=== PATIENT | female | born 1955 | race Caucasian/White ===

== ENCOUNTER 2024-04-24 12:51 | Outpatient (AMB) | payer MEDICARE, SELFPAY ==
--- NOTE | 2024-04-24 13:18 | A.OFFPC_ITS ---
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 Intake Note: New patient visit Tube Inspector Required: No Allergies sulfamethoxazole [From Bactrim] Allergy (Severe, Verified 04/24/24 13:22) stomch cramps trimethoprim [From Bactrim] Allergy (Severe, Verified 04/24/24 13:22) stomch cramps Medication List - Last Reconciled 04/24/24 by Jacquelin Ruiz MD calcium carbonate-vitamin D3 500 mg-10 mcg (400 unit) (Calcium 500 With D) 1 tab PO DAILY levothyroxine 88 mcg PO DAILY lisinopril 2.5 mg PO DAILY multivitamin 1 tab PO DAILY phytosterol-pantethine 300-100 mg (CholestOff Complete) caps PO Tobacco use date assessed: 04/24/24 Fall risk assessment: No Falls in past year Last assessed Fall Risk: 04/24/24 Dental Screening Dental Screen Date: 04/24/24 Did you have a dental visit in the last 12 months?: Yes Did you have a dental problem in the last 6 months where you did not have access to dental care?: No Was dental information given to patient?: Patient has dentist HPI HPI Comments History of Present Illness Details The patient is a 69 year old female with a past medical history of anxiety, hypertension, hypothyroid, osteoporosis presenting for follow up CV: On lisinopril 2.5 mg daily. Denies chest pain Numbness, tingling, pain in the lower extremities bilaterally. Feet become very cold, whitish at times. This initially was distal but has progressed up to the shins. No excessive fatigue. In fall 09/2023 normal A1C, TSH at goal, b12 low but has been consistent with her supplement. pending recheck (b12) Osteoporosis-continues vitamin D/calcium combination ROS CONSTITUTIONAL: Denies weight loss, fever and chills. HEENT: Denies changes in vision and hearing. RESPIRATORY: Denies SOB and cough. CV: Denies palpitations and CP GI: Denies abdominal pain, nausea, vomiting and diarrhea. : Denies dysuria and urinary frequency. MSK: Denies new myalgia and joint pain. SKIN: Denies rash and pruritus. NEUROLOGICAL: see HPI PSYCHIATRIC: Denies recent changes in mood. PHYSICAL EXAM: GENERAL: Alert and oriented x 3. NAD EYES: EOMI. Anicteric. HENT: Moist mucous membranes. No scleral icterus. No cervical lymphadenopathy. LUNGS: Clear to auscultation bilaterally. CARDIOVASCULAR: Regular rate and rhythm. No murmur. No JVD. ABDOMEN: Soft, non-tender +bs EXTREMITIES: No edema. Non-tender. SKIN: No rashes or lesions. Warm. NEUROLOGIC: Decreased sensation LE b/l PSYCHIATRIC: Cooperative. Appropriate mood and affect [facility] Family History (Updated 04/24/24 @ 13:37 by Sobia Bey MOTORS AND CONTROLS TESTER) Mother HTN (hypertension) Hyperchloremia Thyroid disorder Anxiety Father HTN (hypertension) Hyperchloremia Cancer Maternal Grandmother HTN (hypertension) Hyperchloremia Paternal Grandmother HTN (hypertension) Hyperchloremia Paternal Grandfather Diabetes Other FH: mental illness Social History Housing: House Patient Tobacco Use Status: Never used Tobacco e-Cigarette/Vaping Use: Never Used Second Hand Smoke Exposure: Yes service: No Current occupational status: retired Cognitive needs: No Hearing needs: No Vision needs: Yes (glasses) Questionnaire PHQ-9 Over the last 2 weeks, how often have you been bothered by any of the following problems? 1. Little interest or pleasure in doing things: not at all 2. Feeling down, depressed, or hopeless: not at all 3. Trouble falling or staying asleep, or sleeping too much: several days 4. Feeling tired or having little energy: not at all 5. Poor appetite or overeating: not at all 6. Feeling bad about yourself - or that you are a failure or have let yourself or your family down: not at all 7. Trouble concentrating on things, such as reading the newspaper or watching television: not at all 8. Moving or speaking so slowly that other people could have noticed. Or the opposite - being so fidgety or restless that you have been moving around a lot more than usual: not at all 9. Thoughts that you would be better off or of hurting yourself in some way: not at all Total score: 1 Depression Screening Interpretation: Negative (neg) Depression Screening Done: Yes 16112 - PHQ-9 Billing: Yes Source: Developed by Drs. Jefe Fabian, Raji Rodriguez and colleagues, with an educational silvina from [employer]. Thrive Questionnaire Date Thrive assessed: 04/24/24 I am a: Patient What is your living situation today?: I have a steady place to live Within the past 12 months, did the food you bought not last and you didn't have the money to get more?: Never true Within the past 12 months, did you worry whether your food would run out before you got money to buy more?: Never true Do you have trouble paying for medicines?: No Do you have trouble getting transportation to medical appointments?: No Do you have trouble paying your heating and electricity bill?: No Do you have trouble taking care of your child, family member or friend?: No Do you have trouble with day-to-day activities such as bathing, preparing meals, shopping, managing finances, etc.?: No Are you currently unemployed and looking for a job?: No Are you interested in more education?: No Please select the resources that you would like help with: None Currently or been in a relationship where the following occur: no concerns reported THRIVE Score: 0 AUDIT C Alcohol Use Questionnaire (AUDIT-C) 1. How often do you have a drink containing alcohol?: Never 3. How often do you have six or more drinks on one occasion?: Never Total Score: 0 SHAUN-7 AMB Questionnaire SHAUN-7 Date SHAUN - 7 assessed: 04/24/24 Feeling nervous, anxious, or on edge: 0 = Not at all Not being able to stop or control worryin = Not at all Worrying too much about different things: 1 = Several days Trouble relaxin = Not at all Being so restless that it is hard to sit still: 0 = Not at all Becoming easily annoyed or irritable: 0 = Not at all Feeling afraid as if something awful might happen: 0 = Not at all Total SHAUN-7 score (0-4 normal; 5-9 mild; 10-14 moderate; 15-21 severe): 1 Source: Developed by Delisa Garza Kurt Kroenke and colleagues, with an educational silvina from [employer]. HSAUN-7 Assessment Billing SHAUN-7 Assessment Tool: SHAUN-7 Assessment 52531 Physical exam (Primary Care) Vital Signs: Last Vital Signs Temp 98.2 F 04/24/24 13:27 Pulse 88 04/24/24 13:27 Resp 12 04/24/24 13:27 BP 126/62 04/24/24 13:27 Pulse Ox 99 04/24/24 13:27 Oxygen Delivery Method Room Air 04/24/24 13:27 BMI result Body Mass Index 23.0 Tobacco/Smoking Status: Tobacco use Status Tobacco use date assessed 04/24/24 04/24/24 13:32 Patient Tobacco Use Status Never used Tobacco 04/24/24 13:32 e-Cigarette/Vaping Use Never Used 04/24/24 13:32 PHQ-9: PHQ-9 Score PHQ-9: Total score 1 04/24/24 15:25 Depression Screening Interpretation: Negative (neg) Thrive Assessment: Date of Thrive Assessment Date Thrive assessed 04/24/24 04/24/24 13:37 Currently or been in a relationship where the following occur: no concerns reported Assessment and Plan Assessment & Plan (1) Lower extremity neuropathy: Code(s): G57.90 - Unspecified mononeuropathy of unspecified lower limb Qualifiers: Laterality: bilateral Qualified Code(s): G57.93 - Unspecified mononeuropathy of bilateral lower limbs (2) Lower extremity pain: Code(s): M79.606 - Pain in leg, unspecified Qualifiers: Laterality: bilateral Qualified Code(s): M79.604 - Pain in right leg; M79.605 - Pain in left leg (3) Hypothyroid: Code(s): E03.9 - Hypothyroidism, unspecified Qualifiers: 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 Qualified Code(s): E03.8 - Other specified hypothyroidism; E06.3 - Autoimmune thyroiditis (4) Hypertension: Code(s): I10 - Essential (primary) hypertension Qualifiers: Hypertension type: primary hypertension Qualified Code(s): I10 - Essential (primary) hypertension (5) Cystitis: Code(s): N30.90 - Cystitis, unspecified without hematuria Orders: Orders Complete Blood Count Auto Diff 04/24/24 E03.9 - Hypothyroidism, unspecified, E78.5 - Hyperlipidemia, unspecified, G57.90 - Unspecified mononeuropathy of unspecified lower limb, I10 - Essential (primary) hypertension, M79.606 - Pain in leg, unspecified, Z13.228 - Encounter for screening for other metabolic disorders Hemoglobin A1c 04/24/24 E03.9 - Hypothyroidism, unspecified, E78.5 - Hyperlipidemia, unspecified, G57.90 - Unspecified mononeuropathy of unspecified lower limb, I10 - Essential (primary) hypertension, M79.606 - Pain in leg, unspecified, Z13.228 - Encounter for screening for other metabolic disorders Protein Electrophoresis, Serum 04/24/24 E03.9 - Hypothyroidism, unspecified, E78.5 - Hyperlipidemia, unspecified, G57.90 - Unspecified mononeuropathy of unsp ecified lower limb, I10 - Essential (primary) hypertension, M79.606 - Pain in leg, unspecified, Z13.228 - Encounter for screening for other metabolic disorders TSH reflex Free T4 04/24/24 E03.9 - Hypothyroidism, unspecified, E78.5 - Hyperlipidemia, unspecified, G57.90 - Unspecified mononeuropathy of unspecified lower limb, I10 - Essential (primary) hypertension, M79.606 - Pain in leg, unspecified, Z13.228 - Encounter for screening for other metabolic disorders Vitamin B12 and Folate 04/24/24 E03.9 - Hypothyroidism, unspecified, E78.5 - Hyperlipidemia, unspecified, G57.90 - Unspecified mononeuropathy of unspecified lower limb, I10 - Essential (primary) hypertension, M79.606 - Pain in leg, unspecified, Z13.228 - Encounter for screening for other metabolic disorders Lipid Panel 04/24/24 E03.9 - Hypothyroidism, unspecified, E78.5 - Hyperlipidemia, unspecified, G57.90 - Unspecified mononeuropathy of unspecified lower limb, I10 - Essential (primary) hypertension, M79.606 - Pain in leg, unspecified, Z13.228 - Encounter for screening for other metabolic disorders Comprehensive Met. Panel 04/24/24 E03.9 - Hypothyroidism, unspecified, E78.5 - Hyperlipidemia, unspecified, G57.90 - Unspecified mononeuropathy of unspecified lower limb, I10 - Essential (primary) hypertension, M79.606 - Pain in leg, unspecified, Z13.228 - Encounter for screening for other metabolic disorders Protein Electrophoresis,Ran Ur 04/24/24 E03.9 - Hypothyroidism, unspecified, E78.5 - Hyperlipidemia, unspecified, G57.90 - Unspecified mononeuropathy of unspecified lower limb, I10 - Essential (primary) hypertension, M79.606 - Pain in leg, unspecified, Z13.228 - Encounter for screening for other metabolic disorders UA CC w/rflx Micro + Cult 04/24/24 N30.90 - Cystitis, unspecified without hematuria Referrals Physiatry Referral G57.90 - Unspecified mononeuropathy of unspecified lower limb, M79.606 - Pain in leg, unspecified Coding Level of Care Code Est Pt Level 5 (47787) Complex EM visit Add On G2211 Diagnoses 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 Laterality: bilateral Pain in both lower extremities M79.604; M79.605 Laterality: bilateral 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
[2024-04-24 13:27] VITALS: BP 126/62; PULSE 88; RESP 12; TEMP 36.8; O2SAT 99; BMI 23.0
== END 2024-04-24 14:13 | disposition home or self-care (01) ==
PROVIDERS: PCP Internal Medicine; Visit Provider Internal Medicine
DX: I10 Essential (primary) hypertension (principal); M79.604 Pain in right leg; M79.605 Pain in left leg; G57.93 Unspecified mononeuropathy of bilateral lower limbs; E03.8 Other specified hypothyroidism; E06.3 Autoimmune thyroiditis; N30.90 Cystitis, unspecified without hematuria
CPT/HCPCS: 99215; G2211

== ENCOUNTER 2024-06-04 09:09 | Outpatient (AMB) | payer MEDICARE, SELFPAY ==
--- NOTE | 2024-06-04 09:24 | A.OFFVIS_ITS ---
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 Pt states the pain in her feet have been off and on for 2 years and within the past couple of month for her legs. Pt states she has bilateral numbness and tingling from her knees down to her feet. Pt states she always has cold feet as well. Pt denies any previous injections or surgeries. Allergies sulfamethoxazole [From Bactrim] Allergy (Severe, Verified 06/04/24 09:24) stomch cramps trimethoprim [From Bactrim] Allergy (Severe, Verified 06/04/24 09:24) stomch cramps Medication List - Last Reconciled 06/04/24 by Freya Rodriguez MD calcium carbonate-vitamin D3 500 mg-10 mcg (400 unit) (Calcium 500 With D) 1 tab PO DAILY levothyroxine 88 mcg PO DAILY lisinopril 2.5 mg PO DAILY 90 days multivitamin 1 tab PO DAILY phytosterol-pantethine 300-100 mg (CholestOff Complete) caps PO HPI Comments Details: 2 years ago, pins/needles/pain/cold on both feet, then it started to creep up to lower legs, but still below the knee last few months. These would occur randomly, noticed while driving and when laying down at night. No claudication or back pain. No weakness. No bladder/bowel changes. Hands always cold too but not as bad as feet. Non diabetic. History of thyroid disorder. History of osteoporosis. History of B12 deficiency, treated with 500mg oral supplement daily. [facility] Family History (Updated 04/24/24 @ 13:37 by Sobia Bey CMA) Mother HTN (hypertension) Hyperchloremia Thyroid disorder Anxiety Father HTN (hypertension) Hyperchloremia Cancer Maternal Grandmother HTN (hypertension) Hyperchloremia Paternal Grandmother HTN (hypertension) Hyperchloremia Paternal Grandfather Diabetes Other FH: mental illness Social History Housing: House Patient Tobacco Use Status: Never used Tobacco e-Cigarette/Vaping Use: Never Used Second Hand Smoke Exposure: Yes service: No Current occupational status: retired Cognitive needs: No Hearing needs: No Vision needs: Yes (glasses) Review of Systems Const All systems reviewed & are unremarkable except as noted in HPI and below Physical Exam Constitutional: Patient appears to be in no acute distress, well nourished and well developed. MSK: No atrophy. No deformity. No signs of active inflammation. No tenderness on ankle, plantar fascia or Achillis. No footdrop. Good strength with eversion and inversion. Could strengthen EHL. No increased tone noted. Neurological: Neurologic examination of the upper and lower extremities was nonfocal with intact sensation, muscle stretch reflexes and without focal motor deficits . Suazo?s negative bilaterally. Babinski was down going bilaterally. Clonus was negative. Gait is non-antalgic without loss of balance. Results Reviewed Results Reviewed: I reviewed records from the following: PCP Dr. Ruiz Assessment & Plan Assessment & Plan (1) Lower extremity neuropathy: Code(s): G57.90 - Unspecified mononeuropathy of unspecified lower limb Category: Medical Qualifiers: Laterality: bilateral Qualified Code(s): G57.93 - Unspecified mononeuropathy of bilateral lower limbs (2) Lower extremity pain: Code(s): M79.606 - Pain in leg, unspecified Category: Medical Qualifiers: Laterality: bilateral Qualified Code(s): M79.604 - Pain in right leg; M79.605 - Pain in left leg Plan Patient describes a stocking-glove distribution of paresthesias, which is the most common presentation of peripheral neuropathy. She does have history of thyroid disorder and vitamin B12 deficiency, discussed how this could be the more common reasons for neuropathy. We would still rule out peroneal neuropathy as well. I do not think there is any sign that this is coming from lumbar spine . Denies any claudication. We will schedule for EMG lower extremities. No indication for further imaging at this time. Assessment and plan discussed with patient, and patient was agreeable. All ques tions were answered thoroughly. Freya Rodriguez MD, ARELY Board Certified, [place] Board [employer] and Rehabilitation (ABPMR) Board Certified, [place] Board [employer] Electrodiagnostic [employer] (ABEM) Orders: Orders NE electromyogram (EMG) Today G57.93 - Unspecified mononeuropathy of bilateral lower limbs, M79.604 - Pain in right leg, M79.605 - Pain in left leg NE nerve conduction velocity Today G57.93 - Unspecified mononeuropathy of bilateral lower limbs, M79.604 - Pain in right leg, M79.605 - Pain in left leg Coding Level of Care Code New Pt Level 3 (01479) Diagnoses 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 Laterality: bilateral Pain in both lower extremities M79.604; M79.605 Laterality: bilateral
== END 2024-06-04 09:51 | disposition home or self-care (01) ==
PROVIDERS: PCP Internal Medicine; Visit Provider Physical Medicine & Rehabilitation
DX: G57.93 Unspecified mononeuropathy of bilateral lower limbs (principal); M79.604 Pain in right leg; M79.605 Pain in left leg
CPT/HCPCS: 99203

== ENCOUNTER → 2024-06-04 09:09 | Outpatient (BNVA) | payer MEDICARE, SELFPAY | PROVIDERS: PCP Internal Medicine; Visit Provider Physical Medicine & Rehabilitation | DX: G57.93 Unspecified mononeuropathy of bilateral lower limbs (principal); M79.604 Pain in right leg; M79.605 Pain in left leg | CPT/HCPCS: 99202 ==

== ENCOUNTER 2024-06-19 08:22 | Outpatient (REF) | payer MEDICARE, SELFPAY ==
[2024-06-19 11:15] LABS: Appearance Urine Turbid; Color Urine Yellow; Glucose Urine UA Negative (Negative); Leukocyte Esterase Urine Negative (Negative); Nitrite Urine Negative (Negative); Specific Gravity - Urine >= 1.030 (1.005-1.025); UMIC TRIGGER UACC YES; Urine Blood Trace (Negative); Urine Ketones Trace mg/dL (Negative); Urine Protein Negative (Neg-Trace)
[2024-06-19 11:28] LABS: Bacteria Urine None Seen (None Seen); Calcium Oxalate Crystals Urine Present; Hyaline Casts Urine 0-2 /LPF (0-2); RBC Urine 0-2 /HPF (0-2); Squamous Epithelial Cell Urine 0-2 /HPF (0-2); WBC Urine 0-5 /HPF (0-5)
[2024-06-22 14:23] LABS: PEU-Protein Creat Ratio Rand 0.083 (0.024-0.184); PEU-Rand. Prot/Creat Ratio 83 mg/g creat (24-184); PEU-Random Ur. Gamma Globulin 0 %; PEU-Random Urine A1 Globulin 0 %; PEU-Random Urine A2 Globulin 0 %; PEU-Random Urine Albumin 100 %; PEU-Random Urine Beta Globulin 0 %; PEU-Random Urine Creatinine 229 mg/dL (20-275); PEU-Random Urine Protein 19 mg/dL (5-24)
== END 2024-06-19 08:23 | disposition home or self-care (01) ==
LOC: HO.WFDLDS 08:22
PROVIDERS: Visit Provider Internal Medicine
DX: E03.9 Hypothyroidism, unspecified (principal); E78.5 Hyperlipidemia, unspecified; Z13.228 Encounter for screening for other metabolic disorders; I10 Essential (primary) hypertension; G57.90 Unspecified mononeuropathy of unspecified lower limb; M79.606 Pain in leg, unspecified; N30.90 Cystitis, unspecified without hematuria
CPT/HCPCS: 81001; 81003; 82570; 84156; 84166

== ENCOUNTER 2024-07-02 12:39 | Outpatient (REF) | payer MEDICARE, SELFPAY ==
--- NOTE | ~2024-07-02 | XR_ITS ---
EXAMINATION: XR LUMBOSACRAL SPINE CLINICAL INFORMATION: Back pain patient states back pain for a while and no known injury COMPARISON: None available. TECHNIQUE: Three views of the lumbosacral spine. FINDINGS: Dextroscoliosis of the lumbar spine with diffuse demineralization. Atherosclerotic aortoiliac calcifications. Straightening of the normal lumbar lordosis. Facet arthritis in the lower lumbar spine. Moderate multilevel lumbar spondylosis with loss of disc space height at L5-S1. XR/XR lumbar spine 2-3V IMPRESSION: Moderate multilevel lumbar spondylosis with loss of disc space height at L5-S1. Electronically signed by: Mariel Benitez MD 07/22/2024 10:21 AM EDT
--- NOTE | 2024-07-02 12:44 | EMG_ITS ---
Chief complaint: Bilateral leg numbness Reason for referral: Evaluate for neuropathy Procedure done: Bilateral lower extremity NCS/EMG Precautions and/or limitations: None The limb temperature was monitored continuously and remained between 32-36 degrees C during the performance of the NCS. Nerve Conduction Studies Anti Sensory Summary Table ?Stim Site NR Onset (ms) Norm Onset (ms) Peak (ms) Norm Peak (ms) O-P Amp (?V) Norm O-P Amp Site1 Site2 Delta-0 (ms) Dist (cm) Gabriel (m/s) Norm Gabriel (m/s) Left Sural Anti Sensory (Lat Mall) Calf ? 2.8 3.6 <4.0 9.3 >5.0 Calf Lat Mall 2.8 14.0 50 Right Sural Anti Sensory (Lat Mall) Calf ? 3.1 3.6 <4.0 8.7 >5.0 Calf Lat Mall 3.1 14.0 45 Motor Summary Table ?Stim Site NR Onset (ms) Norm Onset (ms) O-P Amp (mV) Norm O-P Amp iAmp (mV) Amp (1st) (%) Site1 Site2 Delta-0 (ms) Dist (cm) Gabriel (m/s) Norm Gabriel (m/s) Right Peroneal Motor (Ext Dig Brev) Ankle ? 4.0 <4.0 6.5 >2.5 7.9 100.0 Ankle Ext Dig Brev 4.0 0.0 B Fib ? 10.5 5.4 6.4 83.1 B Fib Ankle 6.5 29.5 45 >40 Poplt ? 11.6 5.6 6.5 86.2 Poplt B Fib 1.1 6.0 55 >40 Left Tibial Motor (Abd Mendoza Brev) Ankle ? 3.5 <5 13.9 >2.5 20.2 100.0 Ankle Abd Mendoza Brev 3.5 0.0 Knee ? 11.2 6.6 10.0 47.5 Knee Ankle 7.7 38.0 49 >40 Right Tibial Motor (Abd Mendoza Brev) Ankle ? 3.7 <5 13.6 >2.5 19.7 100.0 Ankle Abd Mendoza Brev 3.7 0.0 Knee ? 10.9 7.6 11.3 55.9 Knee Ankle 7.2 38.0 53 >40 EMG ?Side Muscle Nerve Root Ins Act Fibs Psw Amp Dur Poly Recrt Int Pat Comment Right AbdHallucis MedPlantar S1-2 Nml Nml Nml Nml Nml 0 Nml Complete Right AntTibialis Dp Br Peron L4-5 Nml Nml Nml Nml Nml 0 Nml Complete Right PostTibialis Tibial L5, S1 Nml Nml Nml Nml Nml 0 Nml Complete Right MedGastroc Tibial S1-2 Nml Nml Nml Nml Nml 0 Nml Complete Right VastusMed Femoral L2-4 Nml Nml Nml Nml Nml 0 Nml Complete Left AbdHallucis MedPlantar S1-2 Nml Nml Nml Nml Nml 0 Nml Complete Left AntTibialis Dp Br Peron L4-5 Nml Nml Nml Nml Nml 0 Nml Complete Left PostTibialis Tibial L5, S1 Nml Nml Nml Nml Nml 0 Nml Complete Left MedGastroc Tibial S1-2 Nml Nml Nml Nml Nml 0 Nml Complete Left VastusMed Femoral L2-4 Nml Nml Nml Nml Nml 0 Nml Complete FINDINGS: All motor and sensory nerves tested showed normal latencies, amplitudes and conduction velocities. Concentric needle EMG was performed in selected muscles of the bilateral lower extremity. Study did not reveal signs of electric abnormalities as shown in the table above. IMPRESSION: 1. This is a normal study. 2. There is no electrodiagnostic evidence for peroneal neuropathy, tibial neuropathy, lumbosacral plexopathy, lumbar radiculopathy, or peripheral neuropathy. CLINICAL COMMENT: Patient indicates that leg numbness also occur during walking. Chronic back pain. Sending patient for lumbar x-rays. Follow-up at physiatry office to be scheduled. Thank you for your kind referral. Freya Rodriguez MD, ARELY Board Certified, [place] Board [employer] and Rehabilitation (ABPMR) Board Certified, [place] Board of Electrodiagnostic Medicine (ABEM) CODIN [id number] x 2 MTDD
== END 2024-07-02 12:40 | disposition home or self-care (01) ==
LOC: HO.NEURO 12:39
PROVIDERS: PCP Internal Medicine; Visit Provider Physical Medicine & Rehabilitation
DX: M79.604 Pain in right leg (principal); M79.605 Pain in left leg; G57.93 Unspecified mononeuropathy of bilateral lower limbs; M54.9 Dorsalgia, unspecified
CPT/HCPCS: 72100; 95886; 95909

== ENCOUNTER → 2024-07-02 12:44 | Outpatient (BNV) | payer MEDICARE, SELFPAY | PROVIDERS: PCP Internal Medicine; Visit Provider Physical Medicine & Rehabilitation | DX: R20.0 Anesthesia of skin (principal); R20.2 Paresthesia of skin; G57.93 Unspecified mononeuropathy of bilateral lower limbs | CPT/HCPCS: 95886; 95909 ==

== ENCOUNTER 2024-07-13 12:38 | Outpatient (REF) | payer MEDICARE, SELFPAY ==
[2024-07-13 14:49] LABS: Appearance Urine Clear; Color Urine Yellow; Glucose Urine UA Negative (Negative); Leukocyte Esterase Urine Large (3+) (Negative); Nitrite Urine Negative (Negative); PH 6.5 (5.0-9.0); Specific Gravity - Urine <= 1.005 (1.005-1.025); UMIC TRIGGER UACC YES; Urine Blood Small (1+) (Negative); Urine Ketones Negative (Negative); Urine Protein Negative (Neg-Trace)
[2024-07-13 15:02] LABS: Bacteria Urine None Seen (None Seen); Hyaline Casts Urine 0-2 /LPF (0-2); RBC Urine 0-2 /HPF (0-2); Squamous Epithelial Cell Urine 0-2 /HPF (0-2); UACC Culture Trigger YES; WBC Urine 21-50 /HPF (0-5)
== END 2024-07-13 12:39 | disposition home or self-care (01) ==
LOC: HO.WFDLDS 12:38
PROVIDERS: Visit Provider Internal Medicine
DX: N30.90 Cystitis, unspecified without hematuria (principal)
CPT/HCPCS: 81001; 87086

== ENCOUNTER 2024-08-05 09:13 | Outpatient (AMB) | payer MEDICARE, SELFPAY ==
--- NOTE | 2024-08-05 09:19 | MHC.OFFVIS ---
Intake Visit Reasons: OV- EMG review B/L leg numbness Intake Note: Rhiannon is a 69 year old female who presents to the office today for a EMG review of her B/L leg numbness. EMG done on 07/02/24. She mentions she is still having pain in her left great toe for about a month. Allergies sulfamethoxazole [From Bactrim] Allergy (Severe, Verified 08/05/24 09:26) stomch cramps trimethoprim [From Bactrim] Allergy (Severe, Verified 08/05/24 09:26) stomch cramps Medication List - Last Reconciled 08/05/24 by Freya Rodriguez MD calcium carbonate-vitamin D3 500 mg-10 mcg (400 unit) (Calcium 500 With D) 1 tab PO DAILY ciprofloxacin HCl (Cipro) 500 mg PO BID 7 days gabapentin 100 mg PO BEDTIME levothyroxine 88 mcg PO DAILY lisinopril 2.5 mg PO DAILY 90 days multivitamin 1 tab PO DAILY phytosterol-pantethine 300-100 mg (CholestOff Complete) caps PO HPI Comments Details: 2 years ago, pins/needles/pain/cold on both feet, then it started to creep up to lower legs, but still below the knee last few months. These would occur randomly, noticed while driving and when laying down at night. No claudication or back pain. No weakness. No bladder/bowel changes. Hands always cold too but not as bad as feet. Non diabetic. History of thyroid disorder. History of osteoporosis. History of B12 deficiency, treated with 500mg oral supplement daily. EMG done by me 07/02/2024: IMPRESSION: 1. This is a normal study. 2. There is no electrodiagnostic evidence for peroneal neuropathy, tibial neuropathy, lumbosacral plexopathy, lumbar radiculopathy, or peripheral neuropathy. CLINICAL COMMENT: Patient indicates that leg numbness also occur during walking. Chronic back pain. Sending patient for lumbar x-rays. Follow-up at physiatry office to be scheduled. Patient here to discuss x-ray results. Most recently left big toe is very painful. Can't tell if more numb because of constant feet pain and numbness. [facility] Family History (Updated 04/24/24 @ 13:37 by Sobia Bey CMA) Mother HTN (hypertension) Hyperchloremia Thyroid disorder Anxiety Father HTN (hypertension) Hyperchloremia Cancer Maternal Grandmother HTN (hypertension) Hyperchloremia Paternal Grandmother HTN (hypertension) Hyperchloremia Paternal Grandfather Diabetes Other FH: mental illness Social History Housing: House Patient Tobacco Use Status: Never used Tobacco e-Cigarette/Vaping Use: Never Used Second Hand Smoke Exposure: Yes service: No Current occupational status: retired Cognitive needs: No Hearing needs: No Vision needs: Yes (glasses) Physical Exam Constitutional: Patient appears to be in no acute distress, well nourished and well developed. MSK: No atrophy. No deformity. No signs of active inflammation. No tenderness on ankle, plantar fascia or Achillis. No footdrop. Good strength with eversion and inversion. Good strength on EHL. No increased tone noted. Neurological: Neurologic examination of the upper and lower extremities was nonfocal with intact sensation, muscle stretch reflexes and without focal motor deficits . Suazo?s negative bilaterally. Babinski was down going bilaterally. Clonus was negative. Gait is non-antalgic without loss of balance. Results Reviewed Results Reviewed: EMG as above Ordering Physician: Freya Mcadams Date of Service: 07/02/24 Procedure(s): XR lumbar spine 2-3V Accession Number(s): [id number] cc: Jacquelin Ruiz MD; Freya Mcadams EXAMINATION: XR LUMBOSACRAL SPINE CLINICAL INFORMATION: Back pain patient states back pain for a while and no known injury COMPARISON: None available. TECHNIQUE: Three views of the lumbosacral spine. FINDINGS: Dextroscoliosis of the lumbar spine with diffuse demineralization. Atherosclerotic aortoiliac calcifications. Straightening of the normal lumbar lordosis. Facet arthritis in the lower lumbar spine. Moderate multilevel lumbar spondylosis with loss of disc space height at L5-S1. XR/XR lumbar spine 2-3V IMPRESSION: Moderate multilevel lumbar spondylosis with loss of disc space height at L5-S1. Electronically signed by: Mariel Benitez MD 07/22/2024 10:21 AM EDT Assessment & Plan Assessment & Plan (1) Spinal stenosis, lumbar region with neurogenic claudication: Code(s): M48.062 - Spinal stenosis, lumbar region with neurogenic claudication Category: Medical (2) Numbness in feet: Code(s): R20.0 - Anesthesia of skin Category: Medical (3) Lower extremity pain: Code(s): M79.606 - Pain in leg, unspecified Category: Medical Qualifiers: Laterality: bilateral Qualified Code(s): M79.604 - Pain in right leg; M79.605 - Pain in left leg Plan Initially seen to evaluate for neuropathy. EMG did not show peripheral neuropathy. Patient has chronic back pain. Worsening numbness on left big toe. Lumbar x-rays shows decreased disc space L5-S1. Patient had undergone adequate conservative management including PT without improvement of condition. It would be reasonable to obtain further imaging such as MRI. An MRI would help rule out any serious condition, guide treatment and assess prognosis for recovery. Specifically ruling out L5-S1 spinal stenosis. We will also try gabapentin 100 mg q.h.s.. Discussed side effects and precautions. Assessment and plan discussed with patient, and patient was agreeable. All questions were answered thoroughly. Follow up after MRI. Freya Rodriguez MD, ARELY Board Certified, [place] [employer] and Rehabilitation (ABPMR) Board Certified, [place] [employer] Electrodiagn[employer] (ABEM) Orders: Orders MR lumbar spine wo con Today M48.061 - Spinal stenosis, lumbar region without neurogenic claudication, M48.062 - Spinal stenosis, lumbar region with neurogenic claudication, M79.604 - Pain in right leg, M79.605 - Pain in left leg, R20.0 - Anesthesia of skin Medications: New gabapentin 100 mg PO BEDTIME 30 caps 1RF Coding Level of Care Code Est Pt Level 4 (44553) Diagnoses Spinal stenosis, lumbar region with neurogenic claudication M48.062 Numbness in feet R20.0 Pain in both lower extremities M79.604; M79.605 Laterality: bilateral
== END 2024-08-05 09:45 | disposition home or self-care (01) ==
PROVIDERS: PCP Internal Medicine; Visit Provider Physical Medicine & Rehabilitation
DX: M48.062 Spinal stenosis, lumbar region with neurogenic claudication (principal); R20.0 Anesthesia of skin; M79.604 Pain in right leg; M79.605 Pain in left leg
CPT/HCPCS: 99214

== ENCOUNTER → 2024-08-05 09:13 | Outpatient (BNVA) | payer MEDICARE, SELFPAY | PROVIDERS: PCP Internal Medicine; Visit Provider Physical Medicine & Rehabilitation | DX: M48.062 Spinal stenosis, lumbar region with neurogenic claudication (principal); M79.604 Pain in right leg; M79.605 Pain in left leg; R20.0 Anesthesia of skin | CPT/HCPCS: 99212 ==

== ENCOUNTER 2024-09-02 18:02 | Outpatient (REF) | payer MEDICARE, SELFPAY ==
--- NOTE | ~2024-09-02 | MR_ITS ---
EXAMINATION: MR LUMBAR SPINE WITHOUT CONTRAST CLINICAL INFORMATION: Spinal stenosis, lumbar region. COMPARISON: None available. TECHNIQUE: MRI of the lumbar spine was obtained using routine sequences without contrast. FINDINGS: Submitted for interpretation on September 04, 2024. Last rib-bearing vertebra labeled T12. Bone marrow inhomogeneity. No bone marrow STIR signal abnormality. Multilevel marginal osteophyte formation and disc desiccation. The alignment is normal. Focal coarctation of the thecal sac at S1-2. There is a spina bifida occulta at S1-2. There is a focal intradural/extramedullary cylindrical shaped intrinsic hyperintense T1 signal at the S1-2 level. Conus medullaris ends at the pedicle of L1 with normal signal. T12-L1: No compression upon neural elements. L1-2: No compression upon neural elements. L2-3: Broad-based disc bulging. Facet joint and ligamentum flavum hypertrophy. Bilateral neuroforamina narrowing. No central spinal canal stenosis. L4-5: Broad-based disc bulging abutting the L5 nerve roots in the lateral recesses. Facet joint hypertrophy. Bilateral neuroforamina narrowing. L5-S1: Central and right subarticular and foraminal broad-based disc bulging abutting the right S1 nerve root and the right L5 nerve root. Facet joint hypertrophy bilaterally. No prevertebral compartment hematoma, mass or fluid collection. 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 Dextroconvex curvature of the thoracolumbar spine which could be positional. MR/MR lumbar spine wo con IMPRESSION: Multilevel spondylosis, L3-4 to L5-S1 encroaching the exiting right S1, L5 nerve roots and to a lesser extent L4 nerve roots. 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 Electronically signed by: Jagdeep Block MD 09/04/2024 02:52 PM EDT
== END 2024-09-02 18:03 | disposition home or self-care (01) ==
LOC: HO.MRI 18:02
PROVIDERS: PCP Internal Medicine; Visit Provider Physical Medicine & Rehabilitation
DX: R20.0 Anesthesia of skin (principal); M48.061 Spinal stenosis, lumbar region without neurogenic claudication; M48.062 Spinal stenosis, lumbar region with neurogenic claudication; M79.604 Pain in right leg; M79.605 Pain in left leg
CPT/HCPCS: 72148

== ENCOUNTER → 2024-09-02 18:02 | Outpatient (BNV) | payer MEDICARE, SELFPAY | PROVIDERS: PCP Internal Medicine; Visit Provider Radiology Diagnostic Radiology | DX: M48.061 Spinal stenosis, lumbar region without neurogenic claudication (principal) | CPT/HCPCS: 72148 ==

== ENCOUNTER 2024-09-18 10:34 | Outpatient (AMB) | payer MEDICARE, SELFPAY ==
[2024-09-18 10:35] VITALS: BMI 22.8
--- NOTE | 2024-09-18 10:35 | A.OFFVIS_ITS ---
Vital Signs 09/18/24 10:35 Height 5 ft 3.8 in Weight 132 lb 4 oz BMI 22.8 Intake Visit Reasons: OV-MRI Lumbar Spine-follow up Intake Note: Rhiannon is a 69 year old female who presents today for Lumbar Spine MRI review. Patient reports Gabapentin has been helpful. Allergies sulfamethoxazole [From Bactrim] Allergy (Severe, Verified 08/05/24 09:26) stomch cramps trimethoprim [From Bactrim] Allergy (Severe, Verified 08/05/24 09:26) stomch cramps Medication List - Last Reconciled 09/18/24 by Freya Rodriguez MD calcium carbonate-vitamin D3 500 mg-10 mcg (400 unit) (Calcium 500 With D) 1 tab PO DAILY gabapentin 100 mg PO BEDTIME levothyroxine 88 mcg PO DAILY lisinopril 2.5 mg PO DAILY 90 days multivitamin 1 tab PO DAILY phytosterol-pantethine 300-100 mg (CholestOff Complete) caps PO HPI Comments Details: 2 years ago, pins/needles/pain/cold on both feet, then it started to creep up to lower legs, but still below the knee last few months. These would occur randomly, noticed while driving and when laying down at night. No claudication or back pain. No weakness. No bladder/bowel changes. Hands always cold too but not as bad as feet. Non diabetic. History of thyroid disorder. History of osteoporosis. History of B12 deficiency, treated with 500mg oral supplement daily. EMG done by me 07/02/2024: IMPRESSION: 1. This is a normal study. 2. There is no electrodiagnostic evidence for peroneal neuropathy, tibial neuropathy, lumbosacral plexopathy, lumbar radiculopathy, or peripheral neuropathy. CLINICAL COMMENT: Patient indicates that leg numbness also occur during walking. Chronic back pain. Sending patient for lumbar x-rays. Follow-up at physiatry office to be scheduled. Most recently left big toe is very painful. Can't tell if more numb because of constant feet pain and numbness. She started gabapentin for the last month, 100mg every other day, which seems to be helping with the sensation on left big toe. No side effects. Back pain also improved with gabapentin. Denies any spine abnormality during or growing up. No augustin on her lower back. She confirms that the initial symptoms were numbness/tingling on both feet, not just left side. Here today to discuss MRI results. [facility] Family History (Updated 04/24/24 @ 13:37 by Sobia Bey CMA) Mother HTN (hypertension) Hyperchloremia Thyroid disorder Anxiety Father HTN (hypertension) Hyperchloremia Cancer Maternal Grandmother HTN (hypertension) Hyperchloremia Paternal Grandmother HTN (hypertension) Hyperchloremia Paternal Grandfather Diabetes Other FH: mental illness Social History Housing: House Patient Tobacco Use Status: Never used Tobacco e-Cigarette/Vaping Use: Never Used Second Hand Smoke Exposure: Yes service: No Current occupational status: retired Cognitive needs: No Hearing needs: No Vision needs: Yes (glasses) Physical Exam Vital Signs: BMI result Body Mass Index 22.8 Constitutional: Patient appears to be in no acute distress, well nourished and well developed. MSK: No footdrop. Good strength with eversion and inversion. Neurological: Neurologic examination of the upper and lower extremities was nonfocal with intact sensation, muscle stretch reflexes and without focal motor deficits . Suazo?s negative bilaterally. Babinski was down going bilaterally. Clonus was negative. Gait is non-antalgic without loss of balance. Results Reviewed Results Reviewed: Ordering Physician: Freya Mcadams Date of Service: 09/02/24 Procedure(s): MR lumbar spine wo con Accession Number(s): [id number] cc: Jacquelin Ruiz MD; Freya Mcadams~ EXAMINATION: MR LUMBAR SPINE WITHOUT CONTRAST CLINICAL INFORMATION: Spinal stenosis, lumbar region. COMPARISON: None available. TECHNIQUE: MRI of the lumbar spine was obtained using routine sequences without contrast. FINDINGS: Submitted for interpretation on September 04, 2024. Last rib-bearing vertebra labeled T12. Bone marrow inhomogeneity. No bone marrow STIR signal abnormality. Multilevel marginal osteophyte formation and disc desiccation. The alignment is normal. Focal coarctation of the thecal sac at S1-2. There is a spina bifida occulta at S1-2. There is a focal intradural/extramedullary cylindrical shaped intrinsic hyperintense T1 signal at the S1-2 level. Conus medullaris ends at the pedicle of L1 with normal signal. T12-L1: No compression upon neural elements. L1-2: No compression upon neural elements. L2-3: Broad-based disc bulging. Facet joint and ligamentum flavum hypertrophy. Bilateral neuroforamina narrowing. No central spinal canal stenosis. L4-5: Broad-based disc bulging abutting the L5 nerve roots in the lateral recesses. Facet joint hypertrophy. Bilateral neuroforamina narrowing. L5-S1: Central and right subarticular and foraminal broad-based disc bulging abutting the right S1 nerve root and the right L5 nerve root. Facet joint hypertrophy bilaterally. No prevertebral compartment hematoma, mass or fluid collection. 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 Dextroconvex curvature of the thoracolumbar spine which could be positional. MR/MR lumbar spine wo con IMPRESSION: Multilevel spondylosis, L3-4 to L5-S1 encroaching the exiting right S1, L5 nerve roots and to a lesser extent L4 nerve roots. 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 Assessment & Plan Assessment & Plan (1) Numbness in feet: Code(s): R20.0 - Anesthesia of skin Category: Medical (2) Spina bifida occulta: Code(s): Q76.0 - Spina bifida occulta Category: Medical (3) Bulging lumbar disc: Code(s): M51.369 - Other intervertebral disc degeneration, lumbar region without mention of lumbar back pain or lower extremity pain Category: Medical Plan Initially seen to evaluate for neuropathy. EMG did not show peripheral neuropathy. Patient suffers from chronic back pain. Worsening numbness on left big toe. Lumbar x-rays shows decreased disc space L5-S1. Lumbar spine MRI obtained. Looked at images together and reviewed official report. Mild disc bulge seen, probable foraminal disc narrowing L5-S1. Could be enough cause for the numbness in her big toes? Reading raised suspicion for spina bifida occulta. Patient has had no weakness, gait dysfunction, bladder or bowel changes. Had no difficulties growing up. This was a surprise for her. Most likely nonsurgical but would defer to Neurosurgery to make that recommendation. Referral to neurosurgery placed. Continue gabapentin as she is taking. Assessment and plan discussed with patient, and patient was agreeable. All questions were answered thoroughly. Follow up after Neurosurgery consult or 6 months as needed. Freya Rodriguez MD, ARELY Board Certified, [place] [employer] and Rehabilitation (ABPMR) Board Certified, [place] [employer] Electrodiagnostic Medicine (ABEM) Orders: Referrals Neurosurgery Referral M51.369 - Other intervertebral disc degeneration, lumbar region without mention of lumbar back pain or lower extremity pain, Q76.0 - Spina bifida occulta, R20.0 - Anesthesia of skin Medications: Refilled gabapentin 100 mg PO BEDTIME 90 caps 2RF Coding Level of Care Code Est Pt Level 4 (13080) Complex EM visit Add On G2211 Diagnoses Numbness in feet R20.0 Spina bifida occulta Q76.0 Bulging lumbar disc M51.369
== END 2024-09-18 11:05 | disposition home or self-care (01) ==
PROVIDERS: PCP Internal Medicine; Visit Provider Physical Medicine & Rehabilitation
DX: R20.0 Anesthesia of skin (principal); Q76.0 Spina bifida occulta; M51.369 Other intervertebral disc degeneration, lumbar region without mention of lumbar back pain or lower extremity pain
CPT/HCPCS: 99214; G2211

== ENCOUNTER → 2024-09-18 10:34 | Outpatient (BNVA) | payer MEDICARE, SELFPAY | PROVIDERS: PCP Internal Medicine; Visit Provider Physical Medicine & Rehabilitation | DX: M51.369 Other intervertebral disc degeneration, lumbar region without mention of lumbar back pain or lower extremity pain (principal); R20.0 Anesthesia of skin; Q76.0 Spina bifida occulta | CPT/HCPCS: 99212 ==

== ENCOUNTER 2024-10-06 13:25 | Outpatient (AMB) | payer MEDICARE, SELFPAY ==
--- NOTE | 2024-10-06 13:43 | A.SPINEOV_ITS ---
Intake Visit Reasons: evaluate for MRI findings of spinal bifida occulta Intake Note: Ms. Cole is here today c/o Tingling sensation on the back. 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 She is a pleasant 69-year-old female who comes in today with a chief complaint of low back pain and numbness/tingling in her bilateral feet. She was referred to our office for evaluation of spina bifida occulta identified on MRI imaging. She reports that she has had low back pain with numbness and tingling at the bottoms of her bilateral feet for the past 3 years. When describing her back pain she runs her hands just above the waistline. She describes it as waxing and waning in nature. For example, today she has nearly no back pain and no nubmness in her feet. She denies any known inciting incident. She denies any shooting pains down her bilateral lower extremities. She denies any difficulties with ambulation. She denies any balance issues, troubles with dexterity, or bowel/bladder incontinence. She has not attempted physical therapy and has not had any injections in her spine as of yet. She is currently taking gabapentin and Tylenol to help mitigate her symptoms. She feels these medications keep her symptoms fairly well controlled. PMH: GERD, hypothyroidism, hypertension, cholecystectomy 2018, tonsillectomy 1955. Social hx: The patient does not smoke, reports no substance use. Medications: Calcium carbonate, gabapentin, levothyroxine, lisinopril, multivitamin, cholestoff. Allergies: Bactrim. Physical exam: The patient has 5/5 strength in her upper and lower extremities. She has no significant sensational deficits on exam. She ambulates well without an antalgic or spastic gait. She rises from a seated position without difficulty, with no assistance. (+) bilateral Suazo's. (+) 1-2 beats of clonus bilaterally, (+) diffuse 3+ hyperreflexia. (-) bilateral straight leg raise. Imaging review: MRI of the lumbar spine completed here at [facility] shows spondylosis of the lumbar spine with mild-moderate bilateral foraminal stenosis at L3-4, L4-5. There is also moderate right-sided foraminal stenosis at L5-S1. There is evidence of spina bifida occulta at S1-2. Impression: Rhiannon is a pleasant 69-year-old female who comes in today for evaluation of spina bifida occulta on MRI imaging. The primary manifestations of this disorder predominantly gait disturbance, leg weakness, atrophy, urinary/bowel disturbance, or foot deformities. The patient does not present with any of these symptoms, nor any other significant symptoms for a tethered cord during this evaluation. Given this, she does have myelopathic reflexes on exam, concerning for spinal cord impingement elsewhere. She does report that she has had a history of left-sided neck/shoulder pain in the past. Therefore I will be sending her for a MRI of the cervical spine to rule out spinal cord impingement at this level. I believe this is the safest measure to take to ensure that she is not manifesting neurological symptoms in her feet as a result of spinal cord compression elsewhere. I discussed the risks/benefits of this with the patient she is agreeable to proceeding with the MRI. I will follow up with her after it is complete. In regards to his spina bifida, I would suggest she remain on the current regimen that is helping address her symptoms and consider physical therapy if she has continued manifestations of symptoms. She should be followed closely by her primary care team for any manifestations of spina bifida occulta as described above. Thank you for allowing us to care for your patient. The total time spent with this visit with this patient was 45 minutes reviewing history, physical exam, MRI imaging review, and implementation of treatment plan or further diagnostic testing J Carlos Marroquin MD,PhD [facility] Coding Level of Care Code New Pt Level 4 (79328) Diagnoses Spina bifida occulta Q76.0
== END 2024-10-06 14:58 | disposition home or self-care (01) ==
PROVIDERS: PCP Internal Medicine; Referring Provider Physical Medicine & Rehabilitation; Visit Provider Physician Assistant
DX: Q76.0 Spina bifida occulta (principal)
CPT/HCPCS: 99204

== ENCOUNTER → 2024-10-06 13:25 | Outpatient (BNVA) | payer MEDICARE, SELFPAY | PROVIDERS: PCP Internal Medicine; Visit Provider Physician Assistant | DX: Q76.0 Spina bifida occulta (principal) | CPT/HCPCS: 99202 ==

== ENCOUNTER 2024-10-21 14:27 | Outpatient (AMB) | payer MEDICARE, SELFPAY ==
--- NOTE | 2024-10-21 14:25 | A.SPINEOV_ITS ---
Intake Visit Reasons: MRI f/u Intake Note: Ms. Cole is here today to F/u on the results to her MRI. 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 She reports she has had no recurrence of foot numbness, gait disturbance, or other concerns/issues. She has no problems with dexterity or fine motor movement. No bowel or bladder issues. Really, no other concerns or issues with her neck, shoulders, or arms. On imaging review today ( MRI at [place] ) she does appear to have diffuse spondylosis of the cervical spine with a posterior disc herniation at C5-6 causing some effacement of the ventral surface of the cord. In addition to this she has what I would call moderate central canal stenosis at C6-7 with severe left-sided foraminal stenosis at this level. Because the patient has no other symptoms other than the incidental findings of Suazo's and clonus on examination, I recommend that she have a low threshold to come back and see us with the development of any symptoms related to cervical radiculopathy or myelomalacia which we described during this visit today. She understands and agrees to this plan. J Carlos Marroquin MD,PhD [facility] Coding Level of Care Code Est Pt Level 3 (86540) Diagnoses Cervical myelopathy G95.9
--- OUTSIDE RECORDS SUMMARY | 2024-10-21 14:29 | XMS_ITS | Continuity of Care Document ---
Author Organization [facility] ter Address [address] [place] [id number]- Care Team Providers Care Component Inspector Name Role Phone Not on Staff, PCP Primary Care Physician Unavail able Encounter 10/13/24 - 10/14/[address] [address]- Attending Physician: Not on Staff, Attending MD Referring Physician: Not on Staff, Referring MD Encounter Type: [facility]RI Allergies, Adverse Reactions, Alerts Substance Criticality Severity Reaction Reaction Severity Status Bactrim Active Immunizations Given and Recorded Vaccine Date Status Refusal Reason tetanus/diphtheria/pertussis, acel(Tdap) 10/02/23 Given tetanus/diphtheria/pertussis, acel(Tdap) 09/28/13 Recorded pneumococcal 13-valent vaccine 1 04/20/21 Given zoster vaccine, inactivated 03/05/21 Recorded influenza virus vaccine, inactivated 09/02/20 Stiven rded Influenza Virus Vaccine (oldterm) 09/22/19 Recorde d Zoster Vaccine Live 01/18/14 Recorded 1Result Comment: [id number] Medications Ativan 1 mg oral tablet See Instructions, PRN as needed for anxiety, take 1/2 to 1 tab oral once nightly to fall back asleep Duration 30 days, # 30 tablet, 0 Refills, Maintenance, 07/19/22 8:59:00 AM EDT, Tablet, [id number], Partial fill upon patient request if the prescription is for a schedule II opioid drug., 163, cm, 07/18/22 15:40:00 EDT, Height Start Date: 07/19/22 Status: Ordered Quantity: 30.0 Unit: tablet Repeat number: 1 Calcium 600 +D By Mouth, 0 Refills, Maintenance, 06/12/22 9:59:00 AM EDT, Partial fill upon patient request if the prescription is for a schedule II opioid drug. Start Date: 06/12/22 Status: Ordered Repeat number: 1 levothyroxine 0.088 mg oral tablet 1 tablet, By Mouth, Daily, # 90 tablet, 1 Refills, Maintenance, 01/03/24 3:10:00 PM EST, [facility], 163, cm, 12/31/23 12:58:00 EST, Height, 58.1, kg, 12/23/23 13:54:00 EST, Dry Weight Start Date: 01/03/24 Status: Ordered Quantity: 90.0 Unit: tablet Repeat number: 1 lisinopril 2.5 mg oral tablet 1, tablet, By Mouth, Daily, # 90 tablet, Refills 3, Tot. Refills 3, Maintenance, 01/10/24 11:15:00 AMEST, Route to Pharmacy Electronically, [facility], 163, cm, 12/31/23 12:58:00 EST, Height, 58.1, kg, 12/23/23 13:54:00 EST, Dry Weight Start Date: 01/10/24 Status: Ordered Quantity: 90.0 Unit: tablet Repeat number: 4 Multi-Day Plus Minerals oral tablet 1 tablet, By Mouth, Daily, # 90 tablet, 0 Refills, Maintenance, 01/01/22 11:50:00 AM EST, Tablet, Partial fill upon patient request if the prescription is for a schedule II opioid drug. Start Date: 01/01/22 Status: Ordered Quantity: 90.0 Unit: tablet Repeat number: 1 Valium 2 mg oral tablet See Instructions, Take 1-2 tablets oral every 12 hours as needed for anxiety or sleep, # 20 tablet,Refills 0, Tot. Refills 0, Maintenance, 03/26/23 4:35:00 PM EDT, Instructions Replace Required Details, Route to Pharmacy Electronically, [id number], Partial fill upon patient request if the prescription is for a schedule II opioid drug., 163, cm, 03/26/23 15:53:00 EDT, Height Start Date: 03/26/23 Status: Ordered Quantity: 20.0 Unit: tablet Repeat number: 1 Vitamin B12 = 500 mcg, 0 Refills, Maintenance, 12/31/23 12:57:00 PM EST, Partial fill upon patient request if the prescription is for a schedule II opioid drug. Start Date: 12/31/23 Status: Ordered Repeat number: 1 Problem List Condition Confirmation Course Effective Dates Status H ealth Status Informant Anxiety Confirmed Active Benign essential hypertension Confirmed Active Hyperlipidemia Confirmed Active Hypothyroidism Confirmed Active Increased frequency of urination Confirmed Active Osteoporosis Confirmed Active Palpitations Confirmed Active Psoriasis Confirmed Active Social History Social History Type Response Smoking Status Never (less than 100 in lifetime) entered on: 05/11/19 Sex Sex Representation Female (finding) Patient Care team information Care Team Personnel Name: Not on Staff, PCP Position: [facility] Physician (General Medicine) Member Role: PCP Name: Bradly Haas MD Position: [facility] Physician - Endocrinology Member Role: Lifetime Consulting Physician Care Team Related Persons Name: RICHIDanyelDAVINA Insurance Providers [facility] Information #: 1 Payer: MEDICARE PART B OUTPT Member Number: NA Policy Number: NA Group Number: NA Health Plan Information #: 2 Payer: MEDEX Member Number: NA Policy Number: NA Group Number: NA
== END 2024-10-21 15:36 | disposition home or self-care (01) ==
PROVIDERS: PCP Internal Medicine; Visit Provider Physician Assistant
DX: G95.9 Disease of spinal cord, unspecified (principal)
CPT/HCPCS: 99213

== ENCOUNTER → 2024-10-21 14:27 | Outpatient (BNVA) | payer MEDICARE, SELFPAY | PROVIDERS: PCP Internal Medicine; Visit Provider Physician Assistant | DX: G95.9 Disease of spinal cord, unspecified (principal) | CPT/HCPCS: 99212 ==

== ENCOUNTER 2024-11-02 08:05 | Outpatient (AMB) | payer MEDICARE, SELFPAY ==
--- NOTE | 2024-11-02 08:18 | A.OFFPC_ITS ---
Vital Signs 11/02/24 08:20 Height 5 ft 3.8 in Weight 176 lb 6 oz BMI 30.5 BP 132/84 Blood Pressure Location Rt brachial Position Sitting Pulse 86 Pulse Source Pulse Oximeter Pulse Oximetry (%) 99 Oxygen Delivery Method Room Air Intake Visit Reasons: annual Intake Note: Physical Allergies sulfamethoxazole [From Bactrim] Allergy (Severe, Verified 11/02/24 08:19) stomch cramps trimethoprim [From Bactrim] Allergy (Severe, Verified 11/02/24 08:19) stomch cramps Tobacco use date assessed: 04/24/24 Dental Screening Dental Screen Date: 04/24/24 HPI HPI Comments History of Present Illness Details The patient is a 69 year old female with a past medical history of anxiety, hypertension, hypothyroid, osteoporosis presenting for follow up CV: On lisinopril 2.5 mg daily. Denies chest pain. Denies shortness of breath. Lives with smoker, grew up with smokers inquiring LDCT. Father had aortic aneurysm, she would like screening. Mother had cerebral aneurysm requests testing. MSK: -Cervical DDD-sees Neurospine -Numbness, tingling, pain in the lower e xtremities bilaterally. Feet become very cold, whitish at times. This initially was distal but has progressed up to the shins. No excessive fatigue. In 09/2023 normal A1C, TSH at goal, b12 low but has been consistent with her supplement. Seen by physiatry had EMGs. Doing well on gabapentin -Osteoporosis-continues vitamin D/calciu m combination Hypothyroid: Continues levothyroxine Mammos at [facility]. Due for DXA ROS CONSTITUTIONAL: Denies weight loss, fever and chills. HEENT: Denies changes in vision and hearing. RESPIRATORY: Denies SOB and cough. CV: Denies palpitations and CP GI: Denies abdominal pain, nausea, vomiting and diarrhea. : Denies dysuria and urinary frequency. MSK: Denies new myalgia and joint pain. SKIN: Denies rash and pruritus. NEUROLOGICAL: see HPI PSYCHIATRIC: Denies recent changes in mood. PHYSICAL EXAM: GENERAL: Alert and oriented x 3. NAD EYES: EOMI. Anicteric. HENT: Moist mucous membranes. No scleral icterus. No cervical lymphadenopathy. LUNGS: Clear to auscultation bilaterally. CARDIOVASCULAR: Regular rate and rhythm. No murmur. No JVD. ABDOMEN: Soft, non-tender +bs EXTREMITIES: No edema. Non-tender. SKIN: No rashes or lesions. Warm. NEUROLOGIC: Decreased sensation LE b/l PSYCHIATRIC: Cooperative. Appropriate mood and affect [facility] Family History Mother HTN (hypertension) Hyperchloremia Thyroid disorder Anxiety Father HTN (hypertension) Hyperchloremia Cancer Maternal Grandmother HTN (hypertension) Hyperchloremia Paternal Grandmother HTN (hypertension) Hyperchloremia Paternal Grandfather Diabetes Other FH: mental illness Social History Housing: House Alcohol intake: never Patient Tobacco Use Status: Never used Tobacco e-Cigarette/Vaping Use: Never Used Second Hand Smoke Exposure: Yes service: No Current occupational status: retired Cognitive needs: No Hearing needs: No Vision needs: Yes (glasses) Questionnaire PHQ-9 Over the last 2 weeks, how often have you been bothered by any of the following problems? 1. Little interest or pleasure in doing things: not at all 2. Feeling down, depressed, or hopeless: not at all 3. Trouble falling or staying asleep, or sleeping too much: not at all 4. Feeling tired or having little energy: not at all 5. Poor appetite or overeating: not at all 6. Feeling bad about yourself - or that you are a failure or have let yourself or your family down: not at all 7. Trouble concentrating on things, such as reading the newspaper or watching television: not at all 8. Moving or speaking so slowly that other people could have noticed. Or the opposite - being so fidgety or restless that you have been moving around a lot more than usual: not at all 9. Thoughts that you would be better off or of hurting yourself in some way: not at all Total score: 0 Depression Screening Interpretation: Negative Depression Screening Done: Yes 82156 - PHQ-9 Billing: Yes Source: Developed by Drs. Jefe Fabian, Delisa Ag, Raji Parekh and colleagues, with an educational silvina from [email or web address]. Thrive Questionnaire Date Thrive assessed: 10/26/24 I am a: Patient What is your living situation today?: I have a steady place to live Within the past 12 months, did the food you bought not last and you didn't have the money to get more?: Never true Within the past 12 months, did you worry whether your food would run out before you got money to buy more?: Never true Do you have trouble paying for medicines?: No Do you have trouble getting transportation to medical appointments?: No Do you have trouble paying your heating and electricity bill?: No Do you have trouble taking care of your child, family member or friend?: No Do you have trouble with day-to-day activities such as bathing, preparing meals, shopping, managing finances, etc.?: No Are you currently unemployed and looking for a job?: No Are you interested in more education?: No Please select the resources that you would like help with: None Currently or been in a relationship where the following occur: No concerns reported THRIVE Score: 0 AUDIT C Alcohol Use Questionnaire (AUDIT-C) 1. How often do you have a drink containing alcohol?: Never 3. How often do you have six or more drinks on one occasion?: Never Total Score: 0 SHAUN-7 AMB Questionnaire SHAUN-7 Date SHAUN - 7 assessed: 11/02/24 Feeling nervous, anxious, or on edge: 0 = Not at all Not being able to stop or control worryin = Not at all Worrying too much about different things: 0 = Not at all Trouble relaxin = Not at all Being so restless that it is hard to sit still: 0 = Not at all Becoming easily annoyed or irritable: 0 = Not at all Feeling afraid as if something awful might happen: 0 = Not at all Total SHAUN-7 score (0-4 normal; 5-9 mild; 10-14 moderate; 15-21 severe): 0 Source: Developed by Drs. Jefe Fabian, Delisa Ag, Raji Parekh and colleagues, with an educational silvina from [email or web address]. SHAUN-7 Assessment Billing SHAUN-7 Assessment Tool: SHAUN-7 Assessment 40722 Physical exam (Primary Care) Vital Signs: Last Vital Signs Pulse 86 11/02/24 08:20 BP 132/84 11/02/24 08:20 Pulse Ox 99 11/02/24 08:20 Oxygen Delivery Method Room Air 11/02/24 08:20 BMI result Body Mass Index 30.5 Tobacco/Smoking Status: Tobacco use Status Tobacco use date assessed 04/24/24 11/02/24 08:24 Patient Tobacco Use Status Never used Tobacco 11/02/24 08:24 e-Cigarette/Vaping Use Never Used 11/02/24 08:24 PHQ-9: PHQ-9 Score PHQ-9: Total score 0 11/02/24 08:42 Depression Screening Interpretation: Negative Thrive Assessment: Date of Thrive Assessment Date Thrive assessed 10/26/24 11/02/24 08:24 Currently or been in a relationship where the following occur: No concerns reported Coding Level of Care Code Est Pt Prev Care >65y(68826) Diagnoses Physical exam Z00.00 Cervical myelopathy G95.9 Additional Codes SHAUN-7 Assessment Billing - SHAUN-7 Assessment Tool: SHAUN-7 Assessment 41278 ([id number]) PHQ-9 - 87234 - PHQ-9 Billing: Yes ([id number]) Assessment & Plan Assessment & Plan (1) Physical exam: Code(s): Z00.00 - Encounter for general adult medical examination without abnormal findings Category: Medical Plan: Preventive measures discussed Chronic medical conditions reviewed (2) Cervical myelopathy: Code(s): G95.9 - Disease of spinal cord, unspecified Category: Medical Plan: continue follow up PT, neurospine PRN Orders: Orders Comprehensive Met. Panel Today E03.8 - Other specified hypothyroidism, E06.3 - Autoimmune thyroiditis, E78.5 - Hyperlipidemia, unspecified, I10 - Essential (primary) hypertension Lipid Panel Today E03.8 - Other specified hypothyroidism, E06.3 - Autoimmune thyroiditis, E78.5 - Hyperlipidemia, unspecified, I10 - Essential (primary) hypertension Hemoglobin A1c Today E03.8 - Other specified hypothyroidism, E06.3 - Autoimmune thyroiditis, E78.5 - Hyperlipidemia, unspecified, I10 - Essential (primary) hypertension MR angio head wo con Today Z82.49 - Family history of ischemic heart disease and other diseases of the circulatory system US aorta Today I10 - Essential (primary) hypertension, Z82.49 - Family history of ischemic heart disease and other diseases of the circulatory system, Z87.891 - Personal history of nicotine dependence PT Evaluation and Treatment Today G95.9 - Disease of spinal cord, unspecified, M25.512 - Pain in left shoulder TSH reflex Free T4 Today E03.8 - Other specified hypothyroidism, E06.3 - Autoimmune thyroiditis, E78.5 - Hyperlipidemia, unspecified, I10 - Essential (primary) hypertension Complete Blood Count Auto Diff Today E03.8 - Other specified hypothyroidism, E06.3 - Autoimmune thyroiditis, E78.5 - Hyperlipidemia, unspecified, I10 - Essential (primary) hypertension MM screening mammo BI Today Z12.31 - Encounter for screening mammogram for malignant neoplasm of breast UA CC w/rflx Micro + Cult Today M89.9 - Disorder of bone, unspecified, M94.9 - Disorder of cartilage, unspecified, N39.0 - Urinary tract infection, site not specified XR DEXA axial skeleton Today M89.9 - Disorder of bone, unspecified, M94.9 - Disorder of cartilage, unspecified, N39.0 - Urinary tract infection, site not specified Referrals Lung Cancer Screening Referral Z77.22 - Contact with and (suspected) exposure to environmental tobacco smoke (acute) (chronic), Z87.891 - Personal history of nicotine dependence [employer]PER[employer] Referral Z01.419 - Encounter for gynecological examination (general) (routine) without abnormal findings
[2024-11-02 08:20] VITALS: BP 132/84; PULSE 86; O2SAT 99; BMI 30.5
== END 2024-11-02 09:15 | disposition home or self-care (01) ==
PROVIDERS: PCP Internal Medicine; Visit Provider Internal Medicine
DX: G95.9 Disease of spinal cord, unspecified (principal); I10 Essential (primary) hypertension

== ENCOUNTER → 2024-11-02 08:05 | Outpatient (BNVA) | payer MEDICARE, SELFPAY | PROVIDERS: PCP Internal Medicine; Visit Provider Internal Medicine | DX: Z00.00 Encounter for general adult medical examination without abnormal findings (principal); G95.9 Disease of spinal cord, unspecified | CPT/HCPCS: 96127; 99212 ==

== ENCOUNTER 2024-11-02 09:17 | Outpatient (REF) | payer MEDICARE, SELFPAY ==
[2024-11-02 11:11] LABS: MANUAL DIFF FLAG NO
[2024-11-02 11:16] LABS: Basophils Percent Auto 0.6 % (0-2); Eosinophils Absolute Auto 0.1 X10*3/uL (0.0-0.4); Eosinophils Percent Auto 1.5 % (0-4); Hemoglobin 14.3 g/dl (12.0-16.0); Imm Gran Abs Auto 0.03 X10*3/uL (0.00-0.03); Imm Gran Pct Auto 0.4 % (0.0-0.4); Lymphocytes Absolute Auto 1.6 X10*3/uL (1.2-4.9); Lymphocytes Percent Auto 22.7 % (20-40); Mean Platelet Volume 9.9 fL (9.4-12.3); Monocytes Absolute Auto 0.5 X10*3/uL (0.1-1.2); Monocytes Percent Auto 6.2 % (2-11); Neutrophils Percent Auto 68.6 % (45-73); Platelet Count 338 X10*3/uL (160-400); Red Blood Count 4.47 X10*6/uL (4.20-5.50); Red Cell Distribution Width 11.9 % (11.0-16.0); White Blood Count 7.2 X10*3/uL (4.8-10.8)
[2024-11-02 11:22] LABS: Estimated Average Glucose 103 mg/dL; Hemoglobin A1C 124.2289 umol/L; Hemoglobin A1c % 5.2 % (<6.0); Total Hemoglobin (HGBA1C) 3674.1058 umol/L
[2024-11-02 11:38] LABS: Alanine Aminotransferase 15 U/L (0-31); Albumin Level 4.3 g/dL (3.5-5.0); Alkaline Phosphatase 55 U/L (39-117); Anion Gap 11 (12-20); Aspartate Amino Transferase 26 U/L (5-31); Bilirubin Total 0.6 mg/dL (0.0-1.0); Blood Urea Nitrogen 14 mg/dL (9-16); Calcium 9.6 mg/dL (8.4-10.2); Carbon Dioxide 27 mmol/L (22-29); Chloride 108 mmol/L (96-108); Cholesterol 214 mg/dL (<200); Estimated Glomerular Filt Rate > 60; Glucose Random 94 mg/dL (60-115); HDL Cholesterol 51 mg/dL (>40); LDL Cholesterol Calculated 133 mg/dL (<100); Potassium 4.5 mmol/L (3.3-5.1); Sodium 141 mmol/L (135-145); Triglycerides 154 mg/dL (<150)
== END 2024-11-02 09:18 | disposition home or self-care (01) ==
LOC: HO.WFDLDS 09:17
PROVIDERS: Visit Provider Internal Medicine
DX: Z00.00 Encounter for general adult medical examination without abnormal findings (principal); I10 Essential (primary) hypertension; E03.8 Other specified hypothyroidism; E06.3 Autoimmune thyroiditis; E78.5 Hyperlipidemia, unspecified; G95.9 Disease of spinal cord, unspecified; Z79.899 Other long term (current) drug therapy
CPT/HCPCS: 36415; 80053; 80061; 83036; 84443; 85025; 96127; 99212

== ENCOUNTER 2024-12-14 07:32 | Outpatient (REF) | payer MEDICARE, SELFPAY | END 2024-12-14 07:33 | disposition home or self-care (01) | LOC: HO.US 07:32 | PROVIDERS: PCP Internal Medicine; Visit Provider Internal Medicine | DX: I10 Essential (primary) hypertension (principal); Z87.891 Personal history of nicotine dependence; Z82.49 Family history of ischemic heart disease and other diseases of the circulatory system | CPT/HCPCS: 76775 ==

== ENCOUNTER → 2024-12-14 07:34 | Outpatient (BNV) | payer MEDICARE, SELFPAY | PROVIDERS: PCP Internal Medicine; Visit Provider Radiology Diagnostic Radiology | DX: I25.84 Coronary atherosclerosis due to calcified coronary lesion (principal) | CPT/HCPCS: 76775 ==

== ENCOUNTER 2025-05-04 09:06 | Outpatient (AMB) | payer MEDICARE, SELFPAY ==
--- NOTE | 2025-05-04 09:20 | MHC.PC.OV ---
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 Allergies sulfamethoxazole (From Bactrim) Allergy (Severe, Verified 05/04/25 09:22) stomch cramps trimethoprim (From Bactrim) Allergy (Severe, Verified 05/04/25 09:22) stomch cramps Tobacco use date assessed: 05/04/25 Fall risk assessment: No Falls in past year Last assessed Fall Risk: 05/04/25 Dental Screening Dental Screen Date: 05/04/25 Did you have a dental visit in the last 12 months?: Yes Did you have a dental problem in the last 6 months where you did not have access to dental care?: No Was dental information given to patient?: Patient has dentist HPI HPI Comments History of Present Illness Details The patient is a 69 year old female with a past medical history of anxiety, hypertension, hypothyroid, osteoporosis presenting for follow up CV: On lisinopril 2.5 mg daily. BP 138/84. exercise stress test without ischemia, symptoms-lexiscan recommended. Lives with smoker, grew up with smokers inquiring LDCT. Father had aortic aneurysm, she would like screening. Mother had cerebral aneurysm requests testing. MSK: -Cervical DDD-sees Neurospine -Numbness, tingling, pain in the lower extremities bilaterally. Feet become very cold, whitish at times. This initially was distal but has progressed up to the shins. No excessive fatigue. In fall 09/2023 normal A1C, TSH at goal, b12 low but has been consistent with her supplement. Seen by physiatry had EMGs. Doing well on gabapentin -Osteoporosis-continues vitamin D/calcium combination Hypothyroid: Continues levothyroxine Mammos at [facility]. ROS CONSTITUTIONAL: Denies weight loss, fever and chills. HEENT: Denies changes in vision and hearing. RESPIRATORY: Denies SOB and cough. CV: Denies palpitations and CP GI: Denies abdominal pain, nausea, vomiting and diarrhea. : Denies dysuria and urinary frequency. MSK: Denies new myalgia and joint pain. SKIN: Denies rash and pruritus. NEUROLOGICAL: see HPI PSYCHIATRIC: Denies recent changes in mood. PHYSICAL EXAM: GENERAL: Alert and oriented x 3. NAD EYES: EOMI. Anicteric. HENT: Moist mucous membranes. No scleral icterus. No cervical lymphadenopathy. LUNGS: Clear to auscultation bilaterally. CARDIOVASCULAR: Regular rate and rhythm. No murmur. No JVD. ABDOMEN: Soft, non-tender +bs EXTREMITIES: No edema. Non-tender. SKIN: No rashes or lesions. Warm. NEUROLOGIC: Decreased sensation LE b/l PSYCHIATRIC: Cooperative. Appropriate mood and affect [facility] Family History Mother HTN (hypertension) Hyperchloremia Thyroid disorder Anxiety Father HTN (hypertension) Hyperchloremia Cancer Maternal Grandmother HTN (hypertension) Hyperchloremia Paternal Grandmother HTN (hypertension) Hyperchloremia Paternal Grandfather Diabetes Other FH: mental illness Social History Housing: House Alcohol intake: never Patient Tobacco Use Status: Never used Tobacco e-Cigarette/Vaping Use: Never Used Second Hand Smoke Exposure: Yes service: No Current occupational status: retired Cognitive needs: No Hearing needs: No Vision needs: Yes (glasses) Questionnaire PHQ-9 Over the last 2 weeks, how often have you been bothered by any of the following problems? 1. Little interest or pleasure in doing things: not at all 2. Feeling down, depressed, or hopeless: not at all 3. Trouble falling or staying asleep, or sleeping too much: not at all 4. Feeling tired or having little energy: not at all 5. Poor appetite or overeating: not at all 6. Feeling bad about yourself - or that you are a failure or have let yourself or your family down: not at all 7. Trouble concentrating on things, such as reading the newspaper or watching television: not at all 8. Moving or speaking so slowly that other people could have noticed. Or the opposite - being so fidgety or restless that you have been moving around a lot more than usual: not at all 9. Thoughts that you would be better off or of hurting yourself in some way: not at all Total score: 0 Depression Screening Interpretation: Negative Depression Screening Done: Yes 39355 - PHQ-9 Billing: Yes Source: Developed by Drs. Jefe Fabian, Delisa Ag, Raji Parekh and colleagues, with an educational silvina from [employer]. Thrive Questionnaire Date Thrive assessed: 04/30/25 I am a: Patient What is your living situation today?: I have a steady place to live Within the past 12 months, did the food you bought not last and you didn't have the money to get more?: Never true Within the past 12 months, did you worry whether your food would run out before you got money to buy more?: Never true Do you have trouble paying for medicines?: No Do you have trouble getting transportation to medical appointments?: No Do you have trouble paying your heating and electricity bill?: No Do you have trouble taking care of your child, family member or friend?: No Do you have trouble with day-to-day activities such as bathing, preparing meals, shopping, managing finances, etc.?: No Are you currently unemployed and looking for a job?: No Are you interested in more education?: No Please select the resources that you would like help with: None Currently or been in a relationship where the following occur: No concerns reported THRIVE Score: 0 AUDIT C Alcohol Use Questionnaire (AUDIT-C) 1. How often do you have a drink containing alcohol?: Never 3. How often do you have six or more drinks on one occasion?: Never Total Score: 0 SHAUN-7 AMB Questionnaire SHAUN-7 Date SHAUN - 7 assessed: 11/02/24 Feeling nervous, anxious, or on edge: 0 = Not at all Not being able to stop or control worryin = Not at all Worrying too much about different things: 0 = Not at all Trouble relaxin = Not at all Being so restless that it is hard to sit still: 0 = Not at all Becoming easily annoyed or irritable: 0 = Not at all Feeling afraid as if something awful might happen: 0 = Not at all Total SHAUN-7 score (0-4 normal; 5-9 mild; 10-14 moderate; 15-21 severe): 0 Source: Developed by Delisa Garza. Ancelmo, Raji Parekh and colleagues, with an educational silvina from [employer]. Physical exam (Primary Care) Vital Signs: Last Vital Signs Temp 97.6 F 05/04/25 09:24 Pulse 81 05/04/25 09:24 BP 138/84 05/04/25 09:24 Pulse Ox 96 05/04/25 09:24 Oxygen Delivery Method Room Air 05/04/25 09:24 BMI result Body Mass Index 21.9 Tobacco/Smoking Status: Tobacco use Status Tobacco use date assessed 05/04/25 05/04/25 09:27 Patient Tobacco Use Status Never used Tobacco 05/04/25 09:31 e-Cigarette/Vaping Use Never Used 05/04/25 09:31 PHQ-9: PHQ-9 Score PHQ-9: Total score 0 05/09/25 09:02 Depression Screening Interpretation: Negative Thrive Assessment: Date of Thrive Assessment Date Thrive assessed 04/30/25 05/04/25 09:27 Currently or been in a relationship where the following occur: No concerns reported Coding Level of Care Code Est Pt Level 4 (49282) Diagnoses Primary hypertension I10 Hypertension type: primary hypertension Hyperlipidemia, unspecified hyperlipidemia type E78.5 Hyperlipidemia type: unspecified 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; E06.3 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 Cervical myelopathy G95.9 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 Laterality: bilateral Additional Codes PHQ-9 - 16017 - PHQ-9 Billing: Yes ([id number]) Assessment & Plan Assessment & Plan (1) Hypertension: Code(s): I10 - Essential (primary) hypertension Category: Medical Qualifiers: Hypertension type: primary hypertension Qualified Code(s): I10 - Essential (primary) hypertension (2) Hyperlipidemia: Code(s): E78.5 - Hyperlipidemia, unspecified Category: Medical Qualifiers: Hyperlipidemia type: unspecified Qualified Code(s): E78.5 - Hyperlipidemia, unspecified (3) Hypothyroid: Code(s): E03.9 - Hypothyroidism, unspecified Category: Medical Qualifiers: 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 Qualified Code(s): E03.8 - Other specified hypothyroidism; E06.3 - Autoimmune thyroiditis (4) Cervical myelopathy: Code(s): G95.9 - Disease of spinal cord, unspecified Category: Medical (5) Lower extremity neuropathy: Code(s): G57.90 - Unspecified mononeuropathy of unspecified lower limb Category: Medical Qualifiers: Laterality: bilateral Qualified Code(s): G57.93 - Unspecified mononeuropathy of bilateral lower limbs Plan 70 year old female for follow up Interval history oreviewed BP adequately controlled on current medications Hypothyroid-stable on levothyroxine Labs ordered Orders: Orders Lipid Panel 05/04/25 E03.8 - Other specified hypothyroidism, E06.3 - Autoimmune thyroiditis, E78.5 - Hyperlipidemia, unspecified, I10 - Essential (primary) hypertension, Z13.0 - Encounter for screening for diseases of the blood and blood-forming organs and certain disorders involving the immune mechanism TSH reflex Free T4 05/04/25 E03.8 - Other specified hypothyroidism, E06.3 - Autoimmune thyroiditis, E78.5 - Hyperlipidemia, unspecified, I10 - Essential (primary) hypertension, Z13.0 - Encounter for screening for diseases of the blood and blood-forming organs and certain disorders involving the immune mechanism Comprehensive Met. Panel 05/04/25 E03.8 - Other specified hypothyroidism, E06.3 - Autoimmune thyroiditis, E78.5 - Hyperlipidemia, unspecified, I10 - Essential (primary) hypertension, Z13.0 - Encounter for screening for diseases of the blood and blood-forming organs and certain disorders involving the immune mechanism Complete Blood Count Auto Diff 05/04/25 E03.8 - Other specified hypothyroidism, E06.3 - Autoimmune thyroiditis, E78.5 - Hyperlipidemia, unspecified, I10 - Essential (primary) hypertension, Z13.0 - Encounter for screening for diseases of the blood and blood-forming organs and certain disorders involving the immune mechanism UA CC w/rflx Micro + Cult 05/04/25 N39.0 - Urinary tract infection, site not specified Referrals Cologuard Test Z12.11 - Encounter for screening for malignant neoplasm of colon, Z12.12 - Encounter for screening for malignant neoplasm of rectum Medications: Refilled levothyroxine 88 mcg PO DAILY 90 tabs 3RF lisinopril 2.5 mg PO DAILY 90 tabs 3RF 90 days
[2025-05-04 09:24] VITALS: BP 138/84; PULSE 81; TEMP 36.4; O2SAT 96; BMI 21.9
== END 2025-05-04 09:42 | disposition home or self-care (01) ==
LOC: HO.HMCFM 09:07
PROVIDERS: PCP Internal Medicine; Visit Provider Internal Medicine
DX: I10 Essential (primary) hypertension (principal); E78.5 Hyperlipidemia, unspecified; G95.9 Disease of spinal cord, unspecified; E03.8 Other specified hypothyroidism; E06.3 Autoimmune thyroiditis; G57.93 Unspecified mononeuropathy of bilateral lower limbs

== ENCOUNTER → 2025-05-04 09:06 | Outpatient (BNVA) | payer MEDICARE, SELFPAY | PROVIDERS: PCP Internal Medicine; Visit Provider Internal Medicine | DX: I10 Essential (primary) hypertension (principal); E78.5 Hyperlipidemia, unspecified; E03.8 Other specified hypothyroidism; E06.3 Autoimmune thyroiditis; G95.9 Disease of spinal cord, unspecified; G57.93 Unspecified mononeuropathy of bilateral lower limbs; Z79.899 Other long term (current) drug therapy; Z13.31 Encounter for screening for depression | CPT/HCPCS: 96127; 99212 ==

== ENCOUNTER 2025-05-04 09:46 | Outpatient (REF) | payer MEDICARE, SELFPAY ==
[2025-05-04 11:31] LABS: MANUAL DIFF FLAG NO
[2025-05-04 11:39] LABS: Hematocrit 42.7 % (37.0-47.0); Hemoglobin 14.2 g/dl (12.0-16.0); Imm Gran Abs Auto 0.02 X10*3/uL (0.00-0.03); Imm Gran Pct Auto 0.4 % (0.0-0.4); Lymphocytes Absolute Auto 1.8 X10*3/uL (1.2-4.9); Mean Corpuscular HGB Conc 33.3 g/dl (31.0-35.0); Mean Corpuscular Hemoglobin 31.5 pg (27.0-33.0); Mean Corpuscular Volume 94.7 fL (80.0-98.0); NRBC Abs Auto 0.000 X10*3/uL (0.0-0.012); NRBC Pct Auto 0.0 /100WBC (0.0-0.2); Platelet Count 325 X10*3/uL (160-400); Red Blood Count 4.51 X10*6/uL (4.20-5.50); White Blood Count 5.5 X10*3/uL (4.8-10.8)
[2025-05-04 12:30] LABS: Alanine Aminotransferase 18 U/L (0-31); Albumin Level 4.6 g/dL (3.5-5.0); Alkaline Phosphatase 50 U/L (39-117); Anion Gap 11 (12-20); Aspartate Amino Transferase 29 U/L (5-31); Blood Urea Nitrogen 11 mg/dL (9-16); Calcium 9.5 mg/dL (8.4-10.2); Carbon Dioxide 27 mmol/L (22-29); Chloride 106 mmol/L (96-108); Cholesterol 221 mg/dL (<200); Estimated Glomerular Filt Rate > 60; HDL Cholesterol 47 mg/dL (>40); Potassium 4.3 mmol/L (3.3-5.1); Sodium 140 mmol/L (135-145); Total Protein 7.0 g/dL (6.5-8.0); Triglycerides 161 mg/dL (<150)
[2025-05-11 13:04] LABS: Prot Elec - Albumin 4.2 g/dL (3.8-4.8); Prot Elec - Alpha1 0.3 g/dL (0.2-0.3); Prot Elec - Alpha2 0.7 g/dL (0.5-0.9); Prot Elec - Beta 1 0.4 g/dL (0.4-0.6); Prot Elec - Beta 2 0.3 g/dL (0.2-0.5); Prot Elec - Gamma 0.7 g/dL (0.8-1.7); Prot Elec - Total Protein 6.6 g/dL (6.1-8.1)
== END 2025-05-04 09:47 | disposition home or self-care (01) ==
LOC: HO.WFDLDS 09:46
PROVIDERS: Visit Provider Internal Medicine
DX: E03.9 Hypothyroidism, unspecified (principal); E78.5 Hyperlipidemia, unspecified; I10 Essential (primary) hypertension; E03.8 Other specified hypothyroidism; E06.3 Autoimmune thyroiditis; Z13.0 Encounter for screening for diseases of the blood and blood-forming organs and certain disorders involving the immune mechanism; G57.90 Unspecified mononeuropathy of unspecified lower limb; M79.606 Pain in leg, unspecified; Z13.228 Encounter for screening for other metabolic disorders
CPT/HCPCS: 36415; 80053; 80061; 84165; 84443; 85025

== ENCOUNTER 2025-05-21 10:59 | Outpatient (AMB) | payer MEDICARE, SELFPAY ==
[2025-05-21 11:13] VITALS: BMI 21.9
--- NOTE | 2025-05-21 11:13 | MHC.OFFVIS ---
Vital Signs 05/21/25 11:13 Height 5 ft 3.8 in Weight 127 lb BMI 21.9 Intake Visit Reasons: O/V Bulging lumbar disc s/p neuro Intake Note: Rhiannon is a 70 year old female who presents today for a follow up of the Bulging lumbar disc s/p neuro. States since her last vist, she was evaluated by spine neurologist who ordered 2 MRI. 1 of neck and another of lower back. States results were reviewed however nothing was done or given by provider. States pain is worse with activities. STates she D/C gabapentin due to making her anxious. Allergies sulfamethoxazole (From Bactrim) Allergy (Severe, Verified 05/21/25 11:17) stomch cramps trimethoprim (From Bactrim) Allergy (Severe, Verified 05/21/25 11:17) stomch cramps HPI Comments Details: 2 years ago, pins/needles/pain/cold on both feet, then it started to creep up to lower legs, but still below the knee last few months. These would occur randomly, noticed while driving and when laying down at night. No claudication or back pain. No weakness. No bladder/bowel changes. Hands always cold too but not as bad as feet. Non diabetic. History of thyroid disorder. History of osteoporosis. History of B12 deficiency, treated with 500mg oral supplement daily. EMG done by me 07/02/2024: IMPRESSION: 1. This is a normal study. 2. There is no electrodiagnostic evidence for peroneal neuropathy, tibial neuropathy, lumbosacral plexopathy, lumbar radiculopathy, or peripheral neuropathy. CLINICAL COMMENT: Patient indicates that leg numbness also occur during walking. Chronic back pain. Sending patient for lumbar x-rays. Follow-up at physiatry office to be scheduled. MRI shows suggestion of spina bifida occulta. Seen by Neurosurgery, no surgical intervention required. Also, they reviewed cervical spine MRI with her. No recent ER visits. No severe episodes recently. Only when she overdoes things, would have have low back pain or left shoulder pain. Otherwise, today 0/10. On/off numbness on feet, compression socks helps at night. Stopped taking gabapentin, was making her anxious. To see oncology/hematology, because of abnormal lab tests. [facility] Family History Mother HTN (hypertension) Hyperchloremia Thyroid disorder Anxiety Father HTN (hypertension) Hyperchloremia Cancer Maternal Grandmother HTN (hypertension) Hyperchloremia Paternal Grandmother HTN (hypertension) Hyperchloremia Paternal Grandfather Diabetes Other FH: mental illness Social History Housing: House Alcohol intake: never Patient Tobacco Use Status: Never used Tobacco e-Cigarette/Vaping Use: Never Used Second Hand Smoke Exposure: Yes service: No Current occupational status: retired Cognitive needs: No Hearing needs: No Vision needs: Yes (glasses) Physical Exam Vital Signs: BMI result Body Mass Index 21.9 Constitutional: Patient appears to be in no acute distress, well nourished and well developed. MSK: No footdrop. Negative pronator drift. Mild edema bilateral lower extremities. Neurological: Neurologic examination of the upper and lower extremities was nonfocal with intact sensation, muscle stretch reflexes and without focal motor deficits . Suazo?s negative bilaterally. Babinski was down going bilaterally. Clonus was negative. Gait is non-antalgic without loss of balance. Assessment & Plan Assessment & Plan (1) Numbness in feet: Code(s): R20.0 - Anesthesia of skin Category: Medical (2) Spina bifida occulta: Code(s): Q76.0 - Spina bifida occulta Category: Medical (3) Bulging lumbar disc: Code(s): M51.369 - Other intervertebral disc degeneration, lumbar region without mention of lumbar back pain or lower extremity pain Category: Medical Plan In terms of lower back pain or neck pain/shoulder pain, patient is doing well. No signs of radiculopathy or myelopathy on exam. Patient denies any pain today. Continue home exercises and keep active. Continue balance diet. Assessment and plan discussed with patient, and patient was agreeable. All questions were answered thoroughly. No further follow up needed as of now. Freya Rodriguez MD, ARELY Board Certified, [place] [employer] and Rehabilitation (ABPMR) Board Certified, [place] [employer] Electro[employer] (ABEM) Coding Level of Care Code Est Pt Level 3 (26231) Diagnoses Numbness in feet R20.0 Spina bifida occulta Q76.0 Bulging lumbar disc M51.369
== END 2025-05-21 11:33 | disposition home or self-care (01) ==
LOC: HO.HOS 11:00
PROVIDERS: PCP Internal Medicine; Visit Provider Physical Medicine & Rehabilitation
DX: R20.0 Anesthesia of skin (principal); Q76.0 Spina bifida occulta; M51.369 Other intervertebral disc degeneration, lumbar region without mention of lumbar back pain or lower extremity pain
CPT/HCPCS: 99213

== ENCOUNTER → 2025-05-21 10:59 | Outpatient (BNVA) | payer MEDICARE, SELFPAY | PROVIDERS: PCP Internal Medicine; Visit Provider Physical Medicine & Rehabilitation | DX: M51.369 Other intervertebral disc degeneration, lumbar region without mention of lumbar back pain or lower extremity pain (principal); Q76.0 Spina bifida occulta; R20.0 Anesthesia of skin | CPT/HCPCS: 99212 ==

== ENCOUNTER 2025-06-14 14:07 | Outpatient (AMB) | payer MEDICARE, SELFPAY ==
--- NOTE | 2025-06-14 14:45 | HO.SPINEOV ---
Intake Visit Reasons: recurrent back pain Intake Note: Ms. Cole is here today c/o recurrent back pain. 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 To recap she was previously evaluated in clinic for numbness/tingling in her bilateral feet, accompanied by occasional flare-ups of low back pain. Today, she reports that her low back concerns are worsening, and are now accompanied by a shooting pain down her right lower extremity. When describing the pain she states that it starts in her low back shoots into the right posterior buttocks and down the lateral aspect of her right calf. She denies any shooting pain [id number]. She reports that this pain has been ongoing for the past few weeks, and is so bad that she has had to restart her gabapentin to help mitigate her symptoms. She comes in today looking for recommendations to treat this pain. 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 I would like to send Rhiannon for evaluation by our colleagues in pain management for consideration of injections at L4-5, L5-S1 on the right-hand side. I believe this can both potentially provide her with pain relief, and we will also be of great diagnostic utility for us to identify where her pain is originating from. I would like her to make an appointment to follow up with me after her injections. J Carlos Marroquin MD,PhD [facility] Orders: Referrals Pain Management Referral M54.16 - Radiculopathy, lumbar region Coding Level of Care Code Global (09685) Diagnoses Lumbar radiculopathy M54.16
== END 2025-06-14 15:30 | disposition home or self-care (01) ==
LOC: HO.HNS 14:08
PROVIDERS: PCP Internal Medicine; Visit Provider Physician Assistant
DX: M54.16 Radiculopathy, lumbar region (principal)
CPT/HCPCS: 99213

== ENCOUNTER → 2025-06-14 14:07 | Outpatient (BNVA) | payer MEDICARE, SELFPAY | PROVIDERS: PCP Internal Medicine; Visit Provider Physician Assistant | DX: M54.16 Radiculopathy, lumbar region (principal) | CPT/HCPCS: 99212 ==

== ENCOUNTER → 2025-07-02 14:00 | Outpatient (BNV) | payer MEDICARE, SELFPAY | PROVIDERS: Visit Provider Internal Medicine | DX: D80.9 Immunodeficiency with predominantly antibody defects, unspecified (principal) | CPT/HCPCS: 99203 ==

== ENCOUNTER 2025-07-20 09:53 | Outpatient (AMB) | payer MEDICARE, SELFPAY ==
--- NOTE | 2025-07-20 10:01 | MHC.OFFVIS ---
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 The pain has been chronic for years and has worsened over the past year, described as aching, burning, stabbing, and shooting, radiating down to her right leg. Symptoms are exacerbated by activity and have been managed with gabapentin, although she stopped taking it after a recent flare-up in May. The patient was referred by [facility] for lumbar therapeutic injections at L4-L5 and L5-S1 for pain relief and diagnostic purposes, with consideration for potential surgical intervention. She has completed lumbar MRIs, which revealed significant lateral recess stenosis at L4 and mild to moderate foraminal stenosis at L5, as well as multilevel spondylosis from L3 through S1, worse on the right. The patient has a history of spina bifida, which was discovered at the age of 69, and osteoporosis, which was [place] last [place] [facility] She also reports degenerative changes in cervical spine with compression causing shoulder pain (left>right), hypothyroidism, hypertension, and recurrent urinary tract infections. The patient denies smoking, alcohol, coffee, or recreational drug use. She has experienced nausea with anesthesia in the past. - Onset: Chronic pain for years, worsening over the past year - Quality: Aching, burning, stabbing, shooting - Location: Low back with radiation to the right leg, right posterior buttock, and lateral aspect of the right calf - Exacerbating factors: Activity, overdoing house or yard work, bending backwards - Relieving factors: Gabapentin, although discontinued after a recent flare-up - Interference: Significant pain with activity, affecting daily functions - Affect: Pain impacts daily activities and causes significant discomfort during flare-ups - Analgesia: Previously managed with gabapentin, current pain level reported as 1-2 out of 10 - Adverse Effects: No adverse effects from gabapentin reported - Activities of Daily Living: Pain interferes with activities such as housework and gardening - Aberrant Drug Related Behaviors: No aberrant behaviors reported [facility] Medical History (Updated 07/20/25 @ 10:27 by MACY Howard) Frequent UTI Cystitis Hypothyroid Hyperlipidemia Family history of aortic aneurysm Hypertension Chronic low back pain Surgical History (Updated 07/20/25 @ 10:27 by MACY Howard) Hx of tonsillectomy History of cholecystectomy Family History Mother Anxiety HTN (hypertension) Thyroid disorder Hyperchloremia Father Cancer HTN (hypertension) Hyperchloremia Maternal Grandmother HTN (hypertension) Hyperchloremia Diabetes Paternal Grandmother HTN (hypertension) Hyperchloremia Diabetes Paternal Grandfather No problems noted. Other FH: mental illness Social History Household Members: Spouse Housing: House Alcohol intake: never Patient Tobacco Use Status: Never used Tobacco e-Cigarette/Vaping Use: Never Used Second Hand Smoke Exposure: Yes service: No Current occupational status: retired Cognitive needs: No Hearing needs: No Vision needs: Yes (glasses) Review of Systems Const Details: - Musculoskeletal: Reports chronic low back pain with radiation to the right leg, denies exacerbation with walking or bending - Neurological: Reports numbness and tingling in feet, denies neuropathy, normal EMG - Genitourinary: Reports recurrent urinary tract infections, denies urinary incontinence - Gastrointestinal: Denies nausea except with anesthesia All systems reviewed & are unremarkable except as noted in HPI and below Physical Exam Vital Signs: Last Vital Signs Pulse 97 07/20/25 10:07 BP 128/61 07/20/25 10:07 BMI result Body Mass Index 21.4 General: Appears afebrile. No acute distress. Alert and oriented. Mood and affect appropriate. Follows and participates in conversation appropriately. Respiratory effort is unlabored. No cough. Able to transition from sit to stand unassisted. Ambulates with bilaterally normal heel strike and toe off. General: Yes no CVA tenderness Back/Spine/Pelvis Other: Patient is able to walk and stand on heels and tip toes with no difficulties demonstrating good motor tone. Normal gait, no limping. Can flex forward to 80-90 degrees and extend to 5-10 degrees before experiencing lumbar pain, worse pain with lumbar extension. Demonstrates 5/5 strength of quadriceps bilaterally as well as flexion/dorsiflexion of bilateral feet against resistance. 2+ pedal pulses bilaterally. Straight leg rise with dorsiflexion negative bilaterally. +2 patellar and achilles reflexes bilaterally. Facet loading test positive bilaterally. Ailyn sign, Luciano?s, Pelvic compression and Stinchfield tests are negative bilaterally. No groin pain with I/E hip rotations. Valsalva maneuver negative. Back: no CVA tenderness Cervical Spine: normal cervical lordosis, cervical ROM normal and No Cervical spine tenderness Thoracic/Lumbar Spine: thoracic and lumbar spine normal to inspection, No Thoracic/lumbar spine scar(s), Lasegue's sign negative, straight leg raise negative bilaterally, pain with thoraco-lumbar ROM (mild), No paraspinal muscle tenderness, No thoracic spinal tenderness and No lumbar spinal tenderness Sacroiliac joints: bilaterally (mild) tender to palpation Extrem General: Yes capillary refill normal, Yes no clubbing, cyanosis or edema and Yes no calf tenderness Results Reviewed Results Reviewed: MR LUMBAR SPINE WITHOUT CONTRAST 09/02/24 CLINICAL INFORMATION: Spinal stenosis, lumbar region. COMPARISON: None available. TECHNIQUE: MRI of the lumbar spine was obtained using routine sequences without contrast. FINDINGS: Submitted for interpretation on September 04, 2024. Last rib-bearing vertebra labeled T12. Bone marrow inhomogeneity. No bone marrow STIR signal abnormality. Multilevel marginal osteophyte formation and disc desiccation. The alignment is normal. Focal coarctation of the thecal sac at S1-2. There is a spina bifida occulta at S1-2. There is a focal intradural/extramedullary cylindrical shaped intrinsic hyperintense T1 signal at the S1-2 level. Conus medullaris ends at the pedicle of L1 with normal signal. T12-L1: No compression upon neural elements. L1-2: No compression upon neural elements. L2-3: Broad-based disc bulging. Facet joint and ligamentum flavum hypertrophy. Bilateral neuroforamina narrowing. No central spinal canal stenosis. L4-5: Broad-based disc bulging abutting the L5 nerve roots in the lateral recesses. Facet joint hypertrophy. Bilateral neuroforamina narrowing. L5-S1: Central and right subarticular and foraminal broad-based disc bulging abutting the right S1 nerve root and the right L5 nerve root. Facet joint hypertrophy bilaterally. No prevertebral compartment hematoma, mass or fluid collection. 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 Dextroconvex curvature of the thoracolumbar spine which could be positional. IMPRESSION: Multilevel spondylosis, L3-4 to L5-S1 encroaching the exiting right S1, L5 nerve roots and to a lesser extent L4 nerve roots. 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 NE electromyogram (EMG); NE nerve conduction velocity 07/01/24 FINDINGS: All motor and sensory nerves tested showed normal latencies, amplitudes and conduction velocities. Concentric needle EMG was performed in selected muscles of the bilateral lower extremity. Study did not reveal signs of electric abnormalities as shown in the table above. IMPRESSION: 1. This is a normal study. 2. There is no electrodiagnostic evidence for peroneal neuropathy, tibial neuropathy, lumbosacral plexopathy, lumbar radiculopathy, or peripheral neuropathy. CLINICAL COMMENT Freya Hooper: Patient indicates that leg numbness also occur during walking. Chronic back pain. Sending patient for lumbar x-rays. Follow-up at physiatry office to be scheduled. XR LUMBOSACRAL SPINE 07/02/24 CLINICAL INFORMATION: Back pain patient states back pain for a while and no known injury COMPARISON: None available. TECHNIQUE: Three views of the lumbosacral spine. FINDINGS: Dextroscoliosis of the lumbar spine with diffuse demineralization. Atherosclerotic aortoiliac calcifications. Straightening of the normal lumbar lordosis. Facet arthritis in the lower lumbar spine. Moderate multilevel lumbar spondylosis with loss of disc space height at L5-S1. IMPRESSION: Moderate multilevel lumbar spondylosis with loss of disc space height at L5-S1. Assessment & Plan Assessment & Plan (1) Spinal stenosis, lumbar region with neurogenic claudication: Code(s): M48.062 - Spinal stenosis, lumbar region with neurogenic claudication Category: Medical (2) Bulging lumbar disc: Code(s): M51.369 - Other intervertebral disc degeneration, lumbar region without mention of lumbar back pain or lower extremity pain Category: Medical (3) Lumbar radiculopathy: Code(s): M54.16 - Radiculopathy, lumbar region Category: Medical (4) Chronic low back pain: Code(s): M54.50 - Low back pain, unspecified; G89.29 - Other chronic pain Category: Medical (5) Cystitis: Code(s): N30.90 - Cystitis, unspecified without hematuria Category: Medical (6) Frequent UTI: Code(s): N39.0 - Urinary tract infection, site not specified Category: Medical Plan The plan includes considering lumbar therapeutic injections at L4-L5 and L5-S1 for both pain relief and diagnostic purposes, to assess the potential for surgical intervention. Patient is interested to pursue formal physical therapy prior to any interventional treatments and surgical consideration to improve symptoms and meet insurance requirements for potential surgery or injections. She reports very mild back pain today without significant leg pain. The patient is advised to monitor osteoporosis closely, and a review [place] [facility] [place] to determine the appropriateness of steroid injections. Referral to [facility] is suggested for recurrent urinary tract infections and history of cystitis, and the patient is advised to seek further evaluation. All questions and concerns have been answered and patient agreed with the treatment plan. Follow up after PT and sooner as needed. Patient was informed and verbally consented to the use of an ambient scribe for clinic note documentation during this visit. Orders: Orders PT Evaluation and Treatment Today G89.29 - Other chronic pain, M48.062 - Spinal stenosis, lumbar region with neurogenic claudication, M51.369 - Other intervertebral disc degeneration, lumbar region without mention of lumbar back pain or lower extremity pain, M54.16 - Radiculopathy, lumbar region, M54.50 - Low back pain, unspecified, Q76.0 - Spina bifida occulta, Z90.49 - Acquired absence of other specified parts of digestive tract, Z90.89 - Acquired absence of other organs Referrals Urology Referral N30.90 - Cystitis, unspecified without hematuria, N39.0 - Urinary tract infection, site not specified Coding Level of Care Code New Pt Level 4 (20448) Diagnoses Spinal stenosis, lumbar region with neurogenic claudication M48.062 Bulging lumbar disc M51.369 Lumbar radiculopathy M54.16 Chronic low back pain M54.50; G89.29 Cystitis N30.90 Frequent UTI N39.0
[2025-07-20 10:07] VITALS: BP 128/61; PULSE 97; BMI 21.4
== END 2025-07-20 10:55 | disposition home or self-care (01) ==
PROVIDERS: PCP Internal Medicine; Visit Provider Nurse Practitioner Family
DX: M48.062 Spinal stenosis, lumbar region with neurogenic claudication (principal); M51.369 Other intervertebral disc degeneration, lumbar region without mention of lumbar back pain or lower extremity pain; M54.16 Radiculopathy, lumbar region; M54.50 Low back pain, unspecified; G89.29 Other chronic pain; N30.90 Cystitis, unspecified without hematuria; N39.0 Urinary tract infection, site not specified
CPT/HCPCS: 99204

== ENCOUNTER → 2025-07-20 09:53 | Outpatient (BNVA) | payer MEDICARE, SELFPAY | PROVIDERS: PCP Internal Medicine; Visit Provider Nurse Practitioner Family | DX: M54.50 Low back pain, unspecified (principal); G89.29 Other chronic pain; N30.90 Cystitis, unspecified without hematuria; M54.16 Radiculopathy, lumbar region; M51.369 Other intervertebral disc degeneration, lumbar region without mention of lumbar back pain or lower extremity pain; M48.062 Spinal stenosis, lumbar region with neurogenic claudication | CPT/HCPCS: 99202 ==

== ENCOUNTER 2025-07-22 15:11 | Outpatient (REF) | payer MEDICARE, SELFPAY ==
[2025-07-22 18:13] LABS: Appearance Urine Clear; Glucose Urine UA Negative (Negative); PH 7.0 (5.0-9.0); Specific Gravity - Urine <= 1.005 (1.005-1.025); UMIC TRIGGER UACC YES
== END 2025-07-22 15:12 | disposition home or self-care (01) ==
LOC: HO.WFDLDS 15:11
PROVIDERS: Visit Provider Internal Medicine
DX: N39.0 Urinary tract infection, site not specified (principal); M89.9 Disorder of bone, unspecified; M94.9 Disorder of cartilage, unspecified
CPT/HCPCS: 81001

== ENCOUNTER 2025-09-03 12:41 | Outpatient (REF) | payer MEDICARE, SELFPAY ==
[2025-09-03 18:14] LABS: Appearance Urine Clear; Glucose Urine UA Negative (Negative); PH 6.0 (5.0-9.0); Specific Gravity - Urine 1.020 (1.005-1.025)
[2025-09-03 18:43] LABS: Anion Gap 12 (12-20); Carbon Dioxide 27 mmol/L (22-29); Chloride 104 mmol/L (96-108); Magnesium 2.1 mg/dL (1.6-2.6); Potassium 4.0 mmol/L (3.3-5.1); Sodium 139 mmol/L (135-145)
== END 2025-09-03 12:42 | disposition home or self-care (01) ==
LOC: HO.LAB 12:41
PROVIDERS: PCP Internal Medicine; Visit Provider Nurse Practitioner Family
DX: I10 Essential (primary) hypertension (principal); N39.0 Urinary tract infection, site not specified; F41.9 Anxiety disorder, unspecified; E03.9 Hypothyroidism, unspecified; R00.2 Palpitations; E03.8 Other specified hypothyroidism; E06.3 Autoimmune thyroiditis; R09.89 Other specified symptoms and signs involving the circulatory and respiratory systems
CPT/HCPCS: 36415; 80051; 81003; 83735; 84443; 87086; 93005; 99212

== ENCOUNTER 2025-09-03 12:41 | Outpatient (AMB) | payer MEDICARE, SELFPAY ==
--- NOTE | 2025-09-03 13:08 | A.OFFPC_ITS ---
Vital Signs 09/03/25 13:14 Height 5 ft 4 in Weight 126 lb 6 oz BMI 21.7 BP 132/70 Blood Pressure Location Lt brachial Position Sitting Respiration 12 Pulse 103 H Pulse Source Pulse Oximeter Temp 97.2 F Temp Source Oral Pulse Oximetry (%) 98 Oxygen Delivery Method Room Air Intake Visit Reasons: heart palpitations Intake Note: Patient c/o heart palpitations ans patient has appt with urology 09/14/25 for this on going issue. Curriculum Counselor Required: No Allergies sulfamethoxazole (From Bactrim) Allergy (Severe, Verified 09/03/25 13:13) stomch cramps trimethoprim (From Bactrim) Allergy (Severe, Verified 09/03/25 13:13) stomch cramps meperidine (From Demerol) Allergy (Unknown, Verified 09/03/25 13:13) Vomiting Medication List - Last Reconciled 09/03/25 by Valerie Hall, CLIENT SUCCESS MANAGER- levothyroxine mcg lisinopril 2.5 mg PO DAILY 90 days mecobalamin (vitamin B12) mcg PO multivitamin 1 tab PO DAILY nitrofurantoin macrocrystal 100 mg PO BID 7 days omega 6-cme-xra-fish oil 100-160-1,000 mg (Fish Oil) caps PO phytosterol-pantethine 300-100 mg (CholestOff Complete) caps PO [uricalm cranberry PO] Tobacco use date assessed: 09/03/25 Fall risk assessment: No Falls in past year Last assessed Fall Risk: 09/03/25 Dental Screening Dental Screen Date: 09/03/25 Did you have a dental visit in the last 12 months?: Yes Did you have a dental problem in the last 6 months where you did not have access to dental care?: No Was dental information given to patient?: Patient has dentist HPI HPI Comments History of Present Illness Details History of Present Illness The patient is a 70-year-old female with a past medical history of anxiety, hypertension, hypothyroid, osteoporosis presenting with complaints of palpitations and urinary tract infection symptoms. Recurrent Urinary Tract Infection: - The patient was diagnosed with a urina ry tract infection at an urgent care on Saturday after experiencing nocturia (waking 5 times), urinary urgency, urinary frequency, and hematuria. - She was prescribed antibiotics and her symptoms improved. - On Saturday, the urgent care instruct ed her to stop the antibiotics because her urine culture was negative. - She has a history of three UTIs since April and has a urology appointment scheduled for September 14. - She denies fever or chills associated with her urinary symptoms. Palpitations: - The patient reports new onset of palpi tations that started over a week ago, specifically last Saturday. - She has not experienced palpitations i n years. - Associated symptoms include feeling ve ry anxious and unable to sit still. - She occasionally experiences chest kendra n with the palpitations, self limiting - She denies shortness of breath or pain radiating to her jaw but does report occasional new upper back pain. - A recent stress test was normal. Family history of carotid artery disease: - The patient's mother had carotid arter y problems. - She had a head MRI in the past that deysi yamilet was told would also show her carotids. Thyroid Disorder: - The patient has a 20-30 year history o f thyroid problems. - Taking med as directed; unsure if any changes from pharmacy; last TSH 05/2025 Past Medical History - Thyroid disorder: History for 20-30 ye ars, initially diagnosed as hypothyroidism and later became hyperthyroid. - Recurrent urinary tract infections: Th ree episodes since April. - Chronic back pain: Managed with physic al therapy. - Chronic shoulder pain: Unspecified his tory. - Osteoporosis: History noted. - Family history: Mother had carotid art tre problems. - Past procedures/testing: Normal stress test (recent). Abdominal aortic aneurysm ultrasound in December was negative. Head MRI performed at [facility] in the past. Review of Systems - Constitutional: Reports feeling anxiou s. Denies fever or chills. Reports s table weight. - Cardiovascular: Reports palpitations a nd occasional chest pain associated with palpitations. Denies shortness of breath and jaw pain. - Genitourinary: Reports history of noct uria, urinary urgency, frequency, and hematuria. Reports symptoms improved on antibiotics for recent UTI. - Gastrointestinal: Reports diarrhea alice ry few days since late May. - Musculoskeletal: Reports chronic back pain and chronic shoulder pain. Reports occasional new upper back pain. Physical Exam General: Well developed, well nourished, in no acute distress. Head: Normocephalic, atraumatic. Eyes: Pupils are equal, round and reactive to light and accommodation. Conjunctivae are clear. Neck: carotid bruit on the R Lungs: Clear to auscultation bilaterally. No rales, rhonchi or wheeze noted. Good air flow in all smith. Heart: Regular rate and rhythm, mildly tachcyardic, A slight flattening of the T-waves noted in V4, V5. A bruit is heard on the right side. Abdomen: Bowel sounds present in all quadrants. The abdomen is soft, nontender, with no masses or organomegaly noted. No hernias are noted. No abd bruit. Musculoskeletal: Joints are nontender, without swelling, redness, or effusions. Pulses: Peripheral pulses are equal and palpable bilaterally. Extremities: No clubbing, cyanosis nor edema is noted. Psych: Mood and affect appropriate, though patient reports feeling anxious and restless. Results - EKG: Sinus arrhythmia with nonspecific ST abnormality, specifically slight flattening of the T-waves in V4 and V5. - Abdominal Ultrasound (December): Negat curtis for abdominal aortic aneurysm. - Stress Test (recent): Normal. -I am unable to find the MRI of brain do pr at [facility]. I will ask staff to get this for me. - UA today as below. Will send for cultu re Medical Decision Making The patient is a 70-year-old female presenting with two primary complaints: symptoms concerning for a urinary tract infection and new-onset palpitations. Regarding her urinary symptoms, she was recently diagnosed with a UTI at urgent care, treated with antibiotics with symptomatic improvement, but the culture returned negative. Given her history of recurrent UTIs, a repeat urine sample was collected today for culture to confirm the diagnosis and guide management, while she awaits a scheduled urology consultation. Her palpitations, associated with anxiety and a feeling of being hyperactive, are highly suspicious for hyperthyroidism given her extensive history of a thyroid disorder. The EKG performed today was reassuring, showing no acute ischemic changes. A laboratory workup including TSH, electrolytes, and magnesium has been ordered to investigate potential metabolic or endocrine causes. A bruit was noted on the right carotid artery during the exam; an attempt will be made to obtain prior imaging of her carotids for comparison, although her recent stress test was normal, which is reassuring. The patient was counseled on red flag symptoms that would warrant an immediate visit to the emergency department. Plan 1. Recurrent Urinary Tract Infection - A urine sample was collected and will be sent for culture and sensitivity testing. - The patient was advised to continue ho lding the antibiotics she was prescribed at urgent care, as the culture from that visit was negative. - I will follow up with the patient via the patient portal once the urine culture results are available in 48-72 hours. - The patient will proceed with her [facility] urology appointment on September 14 for further evaluation of her recurrent UTIs. 2. Palpitations - The EKG today showed no acute findings , which is reassuring. - Labs were ordered to be drawn today to check TSH, electrolytes, and magnesium to evaluate for metabolic or endocrine causes. - Given the finding of a right-sided cer vical bruit and her family history, an effort will be made to obtain the results of her prior head/carotid imaging from [facility] for review. - The patient was provided with strict r eturn precautions, including going to the hospital for severe chest pain, racing heart, or feeling faint. - Can consider Echo 3. Thyroid Disorder - The patient's current symptoms of anxi ety, hyperactivity, and palpitations are suspicious for a change in thyroid function. - A TSH level has been ordered as part o f a blood workup to assess her current thyroid status. - Lab results will be monitored, and the patient will be contacted with any abnormal findings. Patient Instructions - A urine sample was collected today and will be sent for testing. Results should be back in 2-3 days, and we will contact you through the patient portal. - Stop taking the antibiotic for the uri nary infection, as the previous test was negative. - Please go to our lab today to have blo od tests done. - If any of your lab results are serious ly abnormal and come back after 5:00 PM, you will get a phone call from the on-call doctor. Otherwise, you can view normal results on the patient portal. - Go to the hospital immediately if your heart starts racing very fast, you feel like you are going to faint, or you develop new or worsening chest pain. - Remember to keep your urology appointm ent on September 14. Consent The patient provided verbal consent for a blood draw to test her TSH, electrolytes, and magnesium levels after the rationale was explained. Patient was informed and verbally consented to the use of an ambient scribe for clinic note documentation during this visit. Total time spent caring for the patient today was 40 minutes. This includes time spent before the visit reviewing the chart, time spent during the visit, and time spent after the visit on documentation, reviewing laboratory results, diagnostic imaging, medications, performing a medically necessary evaluation, counseling on diagnoses, care coordination, ordering appropriate tests, ordering appropriate medications, review of tests performed by other providers, reporting test results with the patient, communication with other healthcare providers. [facility] Medical History (Updated 09/03/25 @ 13:50 by MACY Moreno-) Chronic low back pain Cystitis Family history of aortic aneurysm Frequent UTI Hyperlipidemia Hypertension Hypothyroid Surgical History (Updated 07/20/25 @ 10:27 by MACY Howard) History of cholecystectomy Hx of tonsillectomy Family History Mother Anxiety HTN (hypertension) Thyroid disorder Hyperchloremia Father Cancer HTN (hypertension) Hyperchloremia Maternal Grandmother HTN (hypertension) Hyperchloremia Diabetes Paternal Grandmother HTN (hypertension) Hyperchloremia Diabetes Paternal Grandfather No problems noted. Other FH: mental illness Social History Household Members: Spouse Housing: House Alcohol intake: never Patient Tobacco Use Status: Never used Tobacco e-Cigarette/Vaping Use: Never Used Second Hand Smoke Exposure: Yes service: No Current occupational status: retired Cognitive needs: No Hearing needs: No Vision needs: Yes (glasses) Questionnaire Thrive Questionnaire Date Thrive assessed: 04/30/25 I am a: Patient What is your living situation today?: I have a steady place to live Within the past 12 months, did the food you bought not last and you didn't have the money to get more?: Never true Within the past 12 months, did you worry whether your food would run out before you got money to buy more?: Never true Do you have trouble paying for medicines?: No Do you have trouble getting transportation to medical appointments?: No Do you have trouble paying your heating and electricity bill?: No Do you have trouble taking care of your child, family member or friend?: No Do you have trouble with day-to-day activities such as bathing, preparing meals, shopping, managing finances, etc.?: No Are you currently unemployed and looking for a job?: No Are you interested in more education?: No Please select the resources that you would like help with: None Currently or been in a relationship where the following occur: No concerns reported THRIVE Score: 0 SHAUN-7 AMB Questionnaire SHAUN-7 Date SHAUN - 7 assessed: 11/02/24 Source: Developed by Drs. Jefe Fabian, Delisa Ag, Raji Parekh and colleagues, with an educational silvina from [employer]. Physical exam (Primary Care) Vital Signs: Last Vital Signs Temp 97.2 F 09/03/25 13:14 Pulse 103 H 09/03/25 13:14 Resp 12 09/03/25 13:14 BP 132/70 09/03/25 13:14 Pulse Ox 98 09/03/25 13:14 Oxygen Delivery Method Room Air 09/03/25 13:14 BMI result Body Mass Index 21.7 Tobacco/Smoking Status: Tobacco use Status Tobacco use date assessed 09/03/25 09/03/25 13:16 Patient Tobacco Use Status Never used Tobacco 09/03/25 13:08 e-Cigarette/Vaping Use Never Used 09/03/25 13:08 Thrive Assessment: Date of Thrive Assessment Date Thrive assessed 04/30/25 09/03/25 13:08 Currently or been in a relationship where the following occur: No concerns reported Office Procedures EKG 38142-[id number], Complete Results AMB Urinalysis, Automated UA Leukoctes 0 Luther/uL Last Edit by Dillon Nava MA on 09/03/25 13:31 UA Nitrite Negative Last Edit by Dillon Nava MA on 09/03/25 13:31 UA Urobilinogen 0 mg/dL Last Edit by Dillon Nava MA on 09/03/25 13:31 UA Protein 17 mg/dL Last Edit by Dillon Nava MA on 09/03/25 13:31 UA pH 5.0 Last Edit by Dillon Nava MA on 09/03/25 13:31 UA Blood 10 Tre/uL Last Edit by Dillon Nava MA on 09/03/25 13:31 UA Specific [place] 1.015 Last Edit by Dillon Nava MA on 09/03/25 13:3 1 UA Ketone Negative Last Edit by Dillon Nava MA on 09/03/25 13:31 UA Bilirubin 0 mg/dL Last Edit by Dillon Nava MA on 09/03/25 13:31 UA Glucose 0 mg/dL Last Edit by Dillon Nava MA on 09/03/25 13:31 Results Reviewed Results Reviewed: Laboratory Last Values Urine pH (Auto) 5.0 09/03/25 13:23 Specific [place] (Auto) 1.015 09/03/25 13:23 Urine Protein (Auto) 17 mg/dL 09/03/25 13:23 Glucose (UA)(Auto) 0 mg/dL 09/03/25 13:23 Urine Ketones (Auto) Negative 09/03/25 13:23 Urine Blood (Auto) 10 Tre/uL 09/03/25 13:23 Urine Nitrite (Auto) Negative 09/03/25 13:23 Urine Bilirubin (Auto) 0 mg/dL 09/03/25 13:23 Urine Urobilinogen (Auto) 0 mg/dL 09/03/25 13:23 Leukocyte Esterase (Auto) 0 Luther/uL 09/03/25 13:23 [place] [id number] Ultrasound Report Signed Patient: Rhiannon Cole MR#: [id number] : 1955 Acct:[id number] Age/Sex: 69 / F ADM Date: 12/14/24 Loc: HO.US Attending Dr: Jacquelin Ruiz MD Ordering Physician: Jacquelin Ruiz MD Date of Service: 12/14/24 Procedure(s): US aorta Accession Number(s): [id number] cc: Jacquelin Ruiz MD~ CLINICAL HISTORY: Z87.891 - Personal history of nicotine dependence US abdominal aorta screening with color and spectral Doppler Comparison: None Findings: Aorta diameter proximal: 2.6 x 2.4 cm. Aorta diameter mid: 2.1 x 2.1 cm. Aorta diameter distal: 1.8 x 1.9 cm. Right common iliac artery maximum diameter: 0.9 x 0.8 cm. Left common iliac artery maximum diameter: 0.7 x 0.8 cm. Normal color Doppler. Minimal calcified atherosclerotic disease Normal triphasic flow with peak systolic velocities at 66.7 centimeters/second Impression: 1. No abdominal aortic aneurysm. 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; E06.3 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 Right carotid bruit R09.89 CPT Codes EKG - CPT: 63626-[id number], Complete ([id number]) Assessment & Plan Assessment & Plan (1) Palpitations: Code(s): R00.2 - Palpitations Category: Medical (2) UTI symptoms: Code(s): R39.9 - Unspecified symptoms and signs involving the genitourinary system Category: Medical (3) Hypothyroid: Code(s): E03.9 - Hypothyroidism, unspecified Category: Medical Qualifiers: 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 Qualified Code(s): E03.8 - Other specified hypothyroidism; E06.3 - Autoimmune thyroiditis (4) Right carotid bruit: Code(s): R09.89 - Other specified symptoms and signs involving the circulatory and respiratory systems Category: Medical Plan . Orders: Orders Urine Culture Today R39.9 - Unspecified symptoms and signs involving the genitourinary system Magnesium Today E03.8 - Other specified hypothyroidism, E06.3 - Autoimmune thyroiditis, R00.2 - Palpitations Electrolytes Today E03.8 - Other specified hypothyroidism, E06.3 - Autoimmune thyroiditis, R00.2 - Palpitations AMB Urinalysis Automated Today Z13.9 - Encounter for screening, unspecified TSH reflex Free T4 Today E03.8 - Other specified hypothyroidism, E06.3 - Autoimmune thyroiditis, R00.2 - Palpitations Medications: Discontinued nitrofurantoin macrocrystal must administer with a meal/food Discontinued Reason: Patient Completed Course 100 mg PO BID 7 days 14 caps 0RF
[2025-09-03 13:14] VITALS: BP 132/70; PULSE 103; RESP 12; TEMP 36.2; O2SAT 98; BMI 21.7
== END 2025-09-03 13:48 | disposition home or self-care (01) ==
LOC: HO.HMCFM 12:42
PROVIDERS: PCP Internal Medicine; Visit Provider Nurse Practitioner Family
DX: R00.2 Palpitations (principal); R39.9 Unspecified symptoms and signs involving the genitourinary system; E03.8 Other specified hypothyroidism; E06.3 Autoimmune thyroiditis; R09.89 Other specified symptoms and signs involving the circulatory and respiratory systems

== ENCOUNTER 2025-09-03 13:53 | Outpatient (REF) | payer MEDICARE, SELFPAY | END 2025-09-03 13:54 | disposition home or self-care (01) | LOC: HO.WFDLDS 13:53 | PROVIDERS: Visit Provider Nurse Practitioner Family | DX: Z13.89 Encounter for screening for other disorder (principal) ==

== ENCOUNTER 2025-09-14 09:43 | Outpatient (AMB) | payer MEDICARE, SELFPAY ==
--- NOTE | 2025-09-14 09:44 | A.OFFVIS_ITS ---
Intake Visit Reasons: Recurrent UTIs,cystitis Intake Note: Patient is present for RECURRENT UTI/CYSTITIS Urology Medication:NONE Antibiotic Allergy:SULFA,BACTRIM Blood Thinner:NONE TODAY'S PVR:4ML'S Automation Control Technician Required: No Allergies sulfamethoxazole (From Bactrim) Allergy (Severe, Verified 09/14/25 10:17) stomch cramps trimethoprim (From Bactrim) Allergy (Severe, Verified 09/14/25 10:17) stomch cramps meperidine (From Demerol) Allergy (Unknown, Verified 09/14/25 10:17) Vomiting Medication List - Last Reconciled 09/14/25 by SOCORRO Stark estradiol 0.01%(0.1mg/gram) (Estrace) 1 g vaginal 3XW 90 days levothyroxine mcg lisinopril 2.5 mg PO DAILY 90 days mecobalamin (vitamin B12) mcg PO multivitamin 1 tab PO DAILY omega 7-ely-gon-fish oil 100-160-1,000 mg (Fish Oil) caps PO phytosterol-pantethine 300-100 mg (CholestOff Complete) caps PO [uricalm cranberry PO] HPI Comments Details: Rhiannon is a very pleasant 70-year-old female patient of Dr. Ruiz. She has a past medical history of hypothyroidism, hyperlipidemia, hypertension, and chronic low-back pain. She presents to the office today as a new patient for recurrent urinary tract infections. She reports since the middle of this year in April until just about 2 weeks ago she has experienced for urinary tract infections. She reports having followed up with her PCP as well as urgent cares for treatment. In review of patient's chart it appears urine culture: 08/28 10,000 to 50,000 cfu/ml Mixed bacterial heidi characteristic of urogenital contamination. She denies any issues with constipation. She reports no UTI like symptoms at this time. In office urinalysis results reviewed with the patient today. PVR 4 mL. She currently denies any bothersome urinary issues or concerns. We did discussed potential causes of recurrent urinary tract infections as well as further treatment options and risks and benefits of these treatment options. When asked she denies urinary urgency, urinary frequency, incontinence, nocturia, hematuria, dysuria, foul smelling urine, changes to urinary stream, flank pain, fever, and or chills. She reports utilizing lgmi-nec-urynbkb cranberry pills however has not found this helpful. We discussed obtaining retroperitoneal ultrasound for further assessment evaluation as well as potential near future in office cystoscopy for further assessment evaluation. All questions were answered. She otherwise offers no other issues or concerns at this time. History of Present Illness The patient is a 70-year-old female presenting with recurrent urinary tract infections. She reports experiencing multiple episodes over the past year, with specific occurrences on May 03, July 13, July 22, and August 23. During the August 29 episode, she visited urgent care due to hematuria, but subsequent cultures showed no bacterial growth, indicating no active infection therefore she received the phone call to stop antibiotic therapy that was initiated. The patient describes typical UTI symptoms symptoms are urgency and frequency, particularly at night, and notes that these episodes have caused significant anxiety, impacting her willingness to travel. She has been using auqj-xau-qfohhok Uricom and cranberry tablets daily, but continues to experience symptoms. She denies any issues with constipation and is not sexually active. There is no history of bladder or kidney imaging, but an ultrasound has been recommended to rule out any abnormalities. 1. Recurrent Urinary Tract Infections The patient will begin using estradiol cream as a preventative measure against recurrent urinary tract infections. An ultrasound of the bladder and kidneys is ordered to rule out any underlying abnormalities. Discussion Notes I discussed with the patient the use of estradiol cream as a first-line therapy for preventing recurrent urinary tract infections, explaining that it may take up to six months to see full benefits. We also talked about the importance of staying hydrated and avoiding tight clothing to prevent UTIs. An ultrasound of the bladder and kidneys was recommended to rule out any structural abnormalities. [facility] Medical History Frequent UTI Cystitis Hypothyroid Hyperlipidemia Family history of aortic aneurysm Hypertension Chronic low back pain Surgical History (Updated 07/20/25 @ 10:27 by MACY Howard) Hx of tonsillectomy History of cholecystectomy Family History Mother Anxiety HTN (hypertension) Thyroid disorder Hyperchloremia Father Cancer HTN (hypertension) Hyperchloremia Maternal Grandmother HTN (hypertension) Hyperchloremia Diabetes Paternal Grandmother HTN (hypertension) Hyperchloremia Diabetes Paternal Grandfather No problems noted. Other FH: mental illness Social History Household Members: Spouse Housing: House Alcohol intake: never Patient Tobacco Use Status: Never used Tobacco e-Cigarette/Vaping Use: Never Used Second Hand Smoke Exposure: Yes service: No Current occupational status: retired Cognitive needs: No Hearing needs: No Vision needs: Yes (glasses) Review of Systems Const All systems reviewed & are unremarkable except as noted in HPI and below Physical Exam Const General: cooperative, healthy appearing, comfortable, no acute distress, well developed, alert and awake Orientation/consciousness: patient oriented x3 Limitations: no limitations HEENT Head: Yes normal to inspection, Yes normocephalic and Yes atraumatic Ears: hearing grossly normal bilaterally Eyes General: appearance normal, both eyes and all related structures Neck Neck: Yes normal visual inspection and Yes trachea midline Chest Chest palpation & inspection: normal inspection of the chest Resp Effort & Inspection: normal respiratory effort and able to speak in complete sentences Cardio Rate: regular rate GI Inspection: Yes normal to inspection General: Yes no CVA tenderness Back/Spine/Pelvis Back: no CVA tenderness Skin General skin exam: no rashes or lesions noted Neuro General: patient oriented x3 Extrem General: Yes normal to inspection Psych Appearance: grossly normal and well kempt Mental Status: mental status grossly normal Speech and movement: Normal speech and movement present and Clear speech present Affect: normal affect Attitude: cooperative Thought process: Normal thought process present Thought content: Normal thought content present Insight: Fair insight present (Psych) Judgement: Fair judgement present (Psych) Office Procedures Post Void Residual Post Residual Void Post Void Residual (PVR): 4 [id number] Void Residual by ultrasound Results AMB Urinalysis, Automated UA Leukoctes 0 Luther/uL Last Edit by TROY Alvarez on 09/14/25 09:59 UA Nitrite Negative Last Edit by TROY Alvarez on 09/14/25 09:59 UA Urobilinogen 0.2 mg/dL Last Edit by TROY Alvarez on 09/14/25 09:5 9 UA Protein 0 mg/dL Last Edit by TROY Alvarez on 09/14/25 09:59 UA pH 6.0 Last Edit by TROY Alvarez on 09/14/25 09:59 UA Blood 0 Tre/uL Last Edit by TROY Alvarez on 09/14/25 09:59 UA Specific [place] 1.020 Last Edit by TROY Alvarez on 09/14/25 09: 59 UA Ketone Negative Last Edit by TROY Alvarez on 09/14/25 09:59 UA Bilirubin 0 mg/dL Last Edit by TROY Alvarez on 09/14/25 09:59 UA Glucose 0 mg/dL Last Edit by TROY Alvarez on 09/14/25 09:59 Results Reviewed Results Reviewed: Laboratory Last Values Urine pH (Auto) 6.0 09/14/25 09:58 Specific [place] (Auto) 1.020 09/14/25 09:58 Urine Protein (Auto) 0 mg/dL 09/14/25 09:58 Glucose (UA)(Auto) 0 mg/dL 09/14/25 09:58 Urine Ketones (Auto) Negative 09/14/25 09:58 Urine Blood (Auto) 0 Tre/uL 09/14/25 09:58 Urine Nitrite (Auto) Negative 09/14/25 09:58 Urine Bilirubin (Auto) 0 mg/dL 09/14/25 09:58 Urine Urobilinogen (Auto) 0.2 mg/dL 09/14/25 09:58 Leukocyte Esterase (Auto) 0 Luther/uL 09/14/25 09:58 Assessment & Plan Assessment & Plan (1) Frequent UTI: Code(s): N39.0 - Urinary tract infection, site not specified Category: Medical Plan In office urinalysis results reviewed with the patient today; as noted above. PVR 4 mL. Will obtain retroperitoneal ultrasound for further assessment evaluation. Start Estrace cream as discussed and prescribed. We did discussed potential causes of recurrent urinary tract infections as well as further treatment options and risks and benefits of these treatment options. She currently denies any UTI like symptoms. Discussed UTI prevention with D mannose supplement, vitamin-C, increasing fluid intake, behavioral therapy with timed voiding, perineal hygiene and postcoital voiding, and management of constipation with stool softeners and increased fiber intake. We did discussed potential near future in office cystoscopy for further assessment evaluation Follow-up in 3 months with imaging and PVR; or sooner with any issues, concerns, and or questions Orders: Orders AMB Urinalysis Automated Today Z13.9 - Encounter for screening, unspecified US retroperitoneal comp Today N39.0 - Urinary tract infection, site not specified Medications: New estradiol 0.01%(0.1mg/gram) (Estrace) Apply a pea-sized amount to urethra daily x1 month and then 3 times per week thereafter 1 g vaginal 3XW 42.5 grams 3RF 90 days Patient Instructions: The patient had an opportunity to ask questions regarding the treatment plan. All questions were answered. Physical exam, labs, and imaging were discussed and reviewed in detail. As well as risks, benefits, and discussion of treatment choices. No major barriers to understanding were identified. The patient expressed understanding and agreement with the above treatment plan. The patient was made aware they should contact our office by phone for worsening of their current condition, the appearance of new symptoms, or with any questions or concerns. Compliance is encouraged with any medications and follow up testing that is ordered. It is a privilege to be allowed the opportunity to participate in? your urological care.? Again, if you have any questions or concerns If you have any questions or concerns please do not hesitate to contact me. The office is [phone]. This note is constructed using voice recognition software. While every effort has been made to ensure accuracy massage therapy instructor errors may have been included. Yours sincerely, SOCORRO Stark Coding Level of Care Code New Pt Level 4 (43362) Diagnoses Frequent UTI N39.0 CPT Codes Post Residual Void - PVR CPT Code: 69586-Deig Void Residual by ultrasound ([id number])
== END 2025-09-14 10:16 | disposition home or self-care (01) ==
LOC: HO.HUSH 09:44
PROVIDERS: PCP Internal Medicine; Visit Provider Nurse Practitioner Family
DX: N39.0 Urinary tract infection, site not specified (principal); Z13.9 Encounter for screening, unspecified
CPT/HCPCS: 99204

== ENCOUNTER → 2025-09-14 09:43 | Outpatient (BNVA) | payer MEDICARE, SELFPAY | PROVIDERS: PCP Internal Medicine; Visit Provider Nurse Practitioner Family | DX: N39.0 Urinary tract infection, site not specified (principal) | CPT/HCPCS: 51798; 81003; 99202 ==

== ENCOUNTER → 2025-09-15 09:47 | Outpatient (REF) | payer MEDICARE, SELFPAY ==
--- NOTE | 2025-09-15 09:49 | CA_ITS ---
Transthoracic Echocardiogram Patient (Last, First, Middle): Rhiannon Cole, Gender: F Date of : 1955 Age: 70 Procedure Date: 09/15/2025 Procedure Type: Transthoracic Echocardiogram Location: OP Height: 162.56 cm Weight: 57.15 kg BSA: 1.61 m2 Heart Rate: 79 bpm BP: 132 / 70 mmHg Histology Tech: SB Referring MD: Valerie Hall [facility] Slate Roofer: John Lara MD Symptoms: I10 - Essential (primary) hypertension/R00.2 Palpitations Study Quality: Adequate ECG Rhythm: Sinus Conclusions: - 1. Hyperdynamic LV ejection fraction greater than 70% 2. Normal cardiac valvular Dopplers 3. Normal RV systolic pressure 4. No gross pericardial effusion Findings Left Ventricle Normal left ventricular cavity size. There is normal left ventricular wall thickness. The left ventricular systolic function is hyperdynamic. The visually estimated ejection fraction is >70%. Spectral Doppler is indicative of a normal filling pattern. Right Ventricle Normal right ventricular cavity size and systolic function. Atria Both atria are normal in size. There is no evidence of interatrial shunt. Aortic Valve Normal aortic valve structure and function. There is no aortic valve stenosis. There is no aortic valve regurgitation. Mitral Valve Normal mitral valve structure and function. There is trace mitral valve regurgitation. There is no mitral valve stenosis. Pulmonic Valve The pulmonic valve is likely normal. Tricuspid Valve Normal tricuspid valve structure. There is trace tricuspid valve regurgitation. The right ventricular systolic pressure is normal. The right ventricular systolic pressure is 19 mmHg. Normal right atrial pressure. There is no evidence of pulmonary hypertension. Great Vessels The pulmonary artery was not well visualized. Small plaque is seen in the sino tubular ridge. Venous The inferior vena cava is normal in size and collapses greater than 50% with inspiration. Pericardium/Pleural There is no evidence of pericardial effusion. Prior Study Comparison No prior study available for comparison. Measurements 2D Linear Measurements IVSd: 0.49 0.6-0.9/0.6-1.0 cm LVIDd: 4.19 3.9-5.3/4.2-5.9 cm LVIDd Index: 2.60 2.4-3.2/2.2-3.1 cm/m2 LVIDs: 2.19 2.0-3.6 cm LA Diam: 3.20 2.7-3.8/3.0-4.0 cm LAIDs Index: 1.99 1.5-2.3 cm/m2 LVOT Diam: 2.10 3.0+(-)1.3 cm 2D Systolic Function EF 4C: 71.60 >55% EF 2C: 73.20 >55% EF BiP: 73.20 >55% Mitral Valve MV Pk E: 0.81 MV PK A: 0.73 MV Decel Time: 200.00 E/A: 1.10 E'Lateral: 6.74 E'Medial: 5.00 E/E' Med: 16.20 E/E' Lat: 12.00 PHT: 59.00 MVA PHT: 3.73 Decel [place]: 4.04 Aortic Valve AoV Pk Gabriel: 1.27 AoV Pk Grad: 6.00 NJ: 3.38 LVOT LVOT Pk Gabriel: 1.31 LVOT Mn Gabriel: 0.95 LVOT VTI: 0.29 LVOT Pk Grad: 7.00 LVOT Mn Grad: 4.00 LVOT Diam: 2.10 LVOT Area: 3.46 Diastolic Function MV Pk E: 0.81 MV Pk A: 0.73 E/A: 1.10 E'Medial: 5.00 E/E' Med: 16.20 E' Laterial: 6.74 E/E' Lat: 12.00 Right Ventricle TAPSE (mm): 19.30 TVS' Gabriel: 13.40 Tricuspid Valve TR Pk Gabriel: 2.00 TR Pk Grad: 16.00 RA Press: 3.00 RVSP: 19.00 Great Vessels Aorta Sinus of Valsalva: 3.20 2.0-3.5 cm Ao Asc: 3.50 2.1-3.4 cm Ao Arch: 3.40 Pulmonary Veins Pulm Vein S/D 1.60 Pulmonary Valve PV Pk Gabriel: 0.91 Peak PV Grad: 3.00 Updated in Other Vendor System with Status of Final John Lara MD electronically signed on 09/15/2025 6:43:40 PM with status of Final
== END ==
LOC: HO.CARD 09:47
PROVIDERS: PCP Internal Medicine; Visit Provider Nurse Practitioner Family
DX: I10 Essential (primary) hypertension (principal); R00.2 Palpitations; R09.89 Other specified symptoms and signs involving the circulatory and respiratory systems
CPT/HCPCS: 93242; 93306

== ENCOUNTER → 2025-09-15 09:49 | Outpatient (BNV) | payer MEDICARE, SELFPAY | PROVIDERS: PCP Internal Medicine; Visit Provider Internal Medicine Cardiovascular Disease | DX: I51.89 Other ill-defined heart diseases (principal) | CPT/HCPCS: 93306 ==

== ENCOUNTER 2025-09-29 09:22 | Outpatient (AMB) | payer MEDICARE, SELFPAY ==
--- NOTE | 2025-09-29 09:43 | A.OFFVIS_ITS ---
Vital Signs 09/29/25 09:44 Height 5 ft 4 in Weight 121 lb 4.068 oz BMI 20.8 BP 140/70 H Blood Pressure Location Lt brachial Position Sitting Pulse 82 Pulse Source Pulse Oximeter Intake Visit Reasons: Palpitations Allergies sulfamethoxazole (From Bactrim) Allergy (Severe, Verified 09/14/25 10:17) stomch cramps trimethoprim (From Bactrim) Allergy (Severe, Verified 09/14/25 10:17) stomch cramps meperidine (From Demerol) Allergy (Unknown, Verified 09/14/25 10:17) Vomiting Medication List - Last Reconciled 09/29/25 by Lorenzo Marie MD estradiol 0.01%(0.1mg/gram) (Estrace) 1 g vaginal 3XW 90 days levothyroxine mcg lisinopril 2.5 mg PO DAILY 90 days mecobalamin (vitamin B12) mcg PO multivitamin 1 tab PO DAILY omega 6-ytd-waz-fish oil 100-160-1,000 mg (Fish Oil) caps PO phytosterol-pantethine 300-100 mg (CholestOff Complete) caps PO [uricalm cranberry PO] HPI Comments Details: The patient is a 70 year old individual presenting for evaluation of heart palpitations. The palpitations began at the end of August, approximately four to six weeks ago, and were initially suspected to be related to thyroid levels, but an EKG and thyroid studies were normal. The patient describes the palpitations as both a fluttering sensation and skipped beats, which were occurring all day long for a period but have been less frequent in the last couple of days. These symptoms are more noticeable when at rest and less so when busy. Recent workup included an echocardiogram and a Holter monitor. The patient reports associated random chest pain and upper back pain, but notes a history of cervical spine compression and shoulder pain, making the etiology uncertain. The pain is not associated with exertion like walking or climbing stairs. Relevant medical history includes hypertension and a previous normal stress test a few years ago. The patient reports feeling anxious and jittery in association with the symptoms. The patient does not smoke but lives with a smoker. [facility] Medical History Frequent UTI Cystitis Hypothyroid Hyperlipidemia Family history of aortic aneurysm Hypertension Chronic low back pain Surgical History (Updated 07/20/25 @ 10:27 by MACY Howard) Hx of tonsillectomy History of cholecystectomy Family History Mother Anxiety HTN (hypertension) Thyroid disorder Hyperchloremia Father Cancer HTN (hypertension) Hyperchloremia Maternal Grandmother HTN (hypertension) Hyperchloremia Diabetes Paternal Grandmother HTN (hypertension) Hyperchloremia Diabetes Paternal Grandfather No problems noted. Other FH: mental illness Social History Household Members: Spouse Housing: House Alcohol intake: never Patient Tobacco Use Status: Never used Tobacco e-Cigarette/Vaping Use: Never Used Second Hand Smoke Exposure: Yes service: No Current occupational status: retired Cognitive needs: No Hearing needs: No Vision needs: Yes (glasses) Review of Systems Const Denies weakness ENT Denies dizziness Card Denies chest pain, Denies chest pain with activity, Denies syncope, Denies rapid heart rate, Denies pedal edema, Denies edema, Denies leg edema, Denies lightheadedness, Reports palpitations, Denies dyspnea, Denies dyspnea on exertion and Denies orthopnea Resp Denies cough, Denies dyspnea and Denies dyspnea on exertion GI Denies hematochezia and Denies change in stool character Musc Denies abnormal gait, Denies muscle cramps, Denies muscle weakness, Denies numbness, Denies radiating pain into limb and Denies tingling Neuro Denies abnormal gait, Denies dizziness, Denies syncope, Denies numbness, Denies tingling and Denies weakness Endo Reports palpitations Physical Exam Vital Signs: Last Vital Signs Pulse 82 09/29/25 09:44 BP 140/70 H 09/29/25 09:44 BMI result Body Mass Index 20.8 Const General: comfortable and no acute distress Orientation/consciousness: patient oriented x3 HEENT Other: Unremarkable Head: Yes normal to inspection Neck Neck: Yes normal visual inspection Chest Chest palpation & inspection: normal inspection of the chest Resp Auscultation: clear to auscultation bilaterally Cardio Palpation: normal PMI Heart sounds: S1 normal heart sound present, S2 normal heart sound present, no gallops, no murmurs and no rubs GI Palpation (GI): Soft to palpation Back/Spine/Pelvis Other: unremarkable Skin General skin exam: no rashes or lesions noted Neuro General: patient oriented x3 Extrem General: Yes normal to inspection Psych Mental Status: mental status grossly normal Assessment & Plan Assessment & Plan (1) PAC (premature atrial contraction): Code(s): I49.1 - Atrial premature depolarization Category: Medical Plan Cardiac studies reviewed. EKG with underlying sinus rhythm at 95/Min; sinus arrhythmias; nonspecific ST-T changes; normal MT and corrected QT. Echocardiogram with hyperdynamic LVEF; no significant valvular findings and otherwise unremarkable. In the Holter monitor, underlying sinus rhythm; supraventricular ectopy with a burden of 1.6% rare ventricular ectopy. Palpitations correlated with supraventricular ectopy and chest pain correlated with sinus rhythm. 1. Palpitations and Premature Atrial Contractions (PACs) The patient's Holter monitor results show flurries of PACs, which are consistent with the reported symptoms of fluttering and skipped beats. These are considered benign at this time, though they carry a long-term increased risk of developing atrial fibrillation. The plan is to initiate a beta-eamon to help control the palpitations and associated anxiety. The dosage can be adjusted as needed. A follow-up visit is scheduled in approximately three months to assess response to treatment. 2. Non-cardiac Chest and Back Pain The patient's reported chest and back pain is random and not associated with physical activity. Given the history of cervical spine compression, this is presumed to be musculoskeletal or radicular in origin rather than cardiac. The plan is to educate the patient to monitor for pain that occurs with exertion, such as walking or in cold weather, which would be more concerning for a cardiac etiology and warrant further investigation. 3. Hypertension The patient has a history of hypertension, currently treated with lisinopril. The addition of a beta-eamon for palpitations will also contribute to blood pressure management. It may be possible to discontinue lisinopril in the future and manage blood pressure with an increased dose of the beta-eamon alone. This will be re-evaluated at the follow-up visit. 4. Anxiety The patient appears jittery and reports feeling anxious, which is exacerbated by the palpitations. The prescribed beta-eamon is expected to alleviate these symptoms by slowing the heart rate and reducing the physical manifestations of anxiety. Discussion Notes I reviewed the Holter monitor findings with the patient, explaining that the fluttering sensations are caused by extra heartbeats called PACs. I reassured the patient that this is not a serious condition at present but noted a long- term increased chance of developing atrial fibrillation. We discussed that the chest and back pain is likely related to the patient's known cervical spine issues rather than the heart, as the pain is random and not exertional. I recommended starting a beta-eamon to calm the heart, which should reduce both the palpitations and the associated feelings of anxiety and jitteriness. I explained that we can adjust the dose later and may be able to stop the lisinopril and use a higher dose of the beta-eamon instead. I advised the patient to pay attention to the character of any pain, noting that pain with activity would be more concerning for a cardiac cause. We agreed to a follow-up appointment in approximately three months to reassess symptoms. Patient was informed and verbally consented to the use of an ambient scribe for clinic note documentation during this visit. Medications: New metoprolol succinate ER (Toprol XL) 25 mg PO DAILY 90 tabs 1RF Patient Instructions: - Start taking the new medication (a beta-eamon) as prescribed to help calm your heart, reduce the fluttering feeling, and help with anxiety. - The extra heartbeats you are feeling are not a serious issue at this time, but they can be bothersome. - Your chest and back pain is most likely coming from your neck and is not related to your heart. - Pay attention to when your pain occurs. If you experience pain with activity, such as walking, climbing stairs, or being out in the cold, contact our office. - We will see you back in the clinic in about three months to check on how you are doing. Coding Level of Care Code New Pt Level 4 (11817) Diagnoses PAC (premature atrial contraction) I49.1
[2025-09-29 09:44] VITALS: BP 140/70; PULSE 82; BMI 20.8
== END 2025-09-29 10:00 | disposition home or self-care (01) ==
LOC: HO.HCS 09:22
PROVIDERS: PCP Internal Medicine; Visit Provider Internal Medicine
DX: I49.1 Atrial premature depolarization (principal)
CPT/HCPCS: 99214

== ENCOUNTER → 2025-09-29 09:22 | Outpatient (BNVA) | payer MEDICARE, SELFPAY | PROVIDERS: PCP Internal Medicine; Visit Provider Internal Medicine | DX: I49.1 Atrial premature depolarization (principal); I10 Essential (primary) hypertension; F41.9 Anxiety disorder, unspecified; Z57.31 Occupational exposure to environmental tobacco smoke | CPT/HCPCS: 99212 ==